=== PATIENT | female | born 1955 | race American Indian/Alaskan Native ===

== ENCOUNTER 2016-12-29 18:58 | Outpatient (CLI) | payer MEDICARE | END 2016-12-29 18:59 | disposition short-term general hospital (02) | DX: R07.9 Chest pain, unspecified (principal); R53.83 Other fatigue; H57.12 Ocular pain, left eye | CPT/HCPCS: A0425; A0427 ==

== ENCOUNTER 2017-01-20 11:59 | Outpatient (CLI) | payer MEDICARE | END 2017-01-20 12:00 | disposition home or self-care (01) | DX: E16.2 Hypoglycemia, unspecified (principal); E66.9 Obesity, unspecified; D69.6 Thrombocytopenia, unspecified ==

== ENCOUNTER 2017-01-21 16:48 | Outpatient (CLI) | payer MEDICARE ==
[2017-01-21] MEDS ORDERED: IOPAMIDOL-300 50 ML VIAL PO ONE (20:34)
[2017-01-21] MEDS ORDERED: IOPAMIDOL-300 100 ML VIAL IVP ONE (20:34)
== END 2017-01-21 16:49 | disposition home or self-care (01) ==
DX: K76.9 Liver disease, unspecified (principal)
CPT/HCPCS: 74177; Q9967

== ENCOUNTER 2017-01-31 10:09 | Outpatient (CLI) | payer MEDICARE | END 2017-01-31 10:10 | disposition home or self-care (01) | DX: Z71.3 Dietary counseling and surveillance (principal); K21.9 Gastro-esophageal reflux disease without esophagitis; Z68.34 Body mass index [BMI] 34.0-34.9, adult ==

== ENCOUNTER 2017-02-14 10:17 | Outpatient (CLI) | payer MEDICARE | END 2017-02-14 10:18 | disposition home or self-care (01) | LOC: NS 10:17 | PROVIDERS: ATTEND Physician Assistant Medical | DX: Z71.3 Dietary counseling and surveillance (principal); E66.3 Overweight; K21.9 Gastro-esophageal reflux disease without esophagitis | CPT/HCPCS: 97803 ==

== ENCOUNTER 2017-02-15 14:56 | Outpatient (CLI) | payer MEDICARE | END 2017-02-15 14:57 | disposition home or self-care (01) | DX: K21.9 Gastro-esophageal reflux disease without esophagitis (principal) ==

== ENCOUNTER 2017-02-28 10:24 | Outpatient (CLI) | payer MEDICARE | END 2017-02-28 10:25 | disposition home or self-care (01) | LOC: NS 10:24 | PROVIDERS: ATTEND Physician Assistant Medical | DX: Z71.3 Dietary counseling and surveillance (principal); E66.3 Overweight; K21.9 Gastro-esophageal reflux disease without esophagitis; Z68.33 Body mass index [BMI] 33.0-33.9, adult | CPT/HCPCS: 97803 ==

== ENCOUNTER 2017-03-08 19:05 | Outpatient (CLI) | payer MEDICARE ==
--- NOTE | 2017-03-09 08:44 | Ultrasound Report ---
LIMITED ABDOMINAL ULTRASOUND: 03/08/2017 COMPARISON: Contrast-enhanced abdominal and pelvic CT 01/21/2017. CLINICAL HISTORY: Liver lesions noted on recent CT exam. Patient has a past history of liver cysts. TECHNIQUE: Real-time scanning was performed with assistance representative static images obtained. FINDINGS: There is a benign cyst noted in the left lobe of the liver measuring 1.2 x 1.5 x 2.0 cm. There is a second much smaller liver cyst in the anterior aspect of the right lobe of the liver measu ring 0.6 cm. Liver size is within normal limits having a length of 14.4 cm. Portal vein shows normal hepatopetal flow. Gallbladder shows no wall thickening or calculi. Patient had no right upper quadrant tenderness. Common bile duct has a normal diameter of 4 mm. Right kidney has a length of 10.7 cm. No pyelocaliceal system distention is seen. Portion of the pancreas visualized showed no significant abnormality. IMPRESSION: TWO SMALL BENIGN LIVER CYSTS HAVING MAXIMAL DIAMETERS OF 2 CM AND 0.6 CM RESPECTIVELY. JOB #: [id number] EXT JOB #:[id number]
== END 2017-03-08 19:06 | disposition home or self-care (01) ==
LOC: DI 19:05
PROVIDERS: ATTEND Physician Assistant Medical
DX: K21.9 Gastro-esophageal reflux disease without esophagitis (principal); K76.89 Other specified diseases of liver
CPT/HCPCS: 76705

== ENCOUNTER 2017-04-06 11:58 | Day surgery (SDC) | payer MEDICARE ==
[2017-04-06] MEDS ORDERED: LACTATED RINGERS 1,000 ML IV ONE (12:31)
[2017-04-06 14:23] VITALS: BP 128/76
--- NOTE | 2017-04-07 07:25 | PROCEDURE REPORT ---
DATE OF PROCEDURE: PROCEDURE PERFORMED 1. Esophagogastroduodenoscopy. 2. Colonoscopy. ENDOSCOPIST: Joann Buchanan M.D. PRIMARY CARE: Samra Pfeiffer P.A.-C INDICATION FOR THE PROCEDURE: Cervical dysphagia, upper abdominal pain, family history of colon cancer and polyps, and rectal bleeding in the past. Rule out neoplasia. PREMEDICATIONS 1. Fentanyl 200 mcg. 2. Versed 12 mg IV titration. TOTAL SEDATION TIME: 50 minutes. DESCRIPTION OF PROCEDURE: After informed consent was obtained, the patient was placed in the left lateral decubitus position. The video upper scope was placed into the oropharynx and, with the patient's help, swallowed into the esophagus. The esophagus, stomach, and duodenum were carefully examined. On withdrawal, a retroflexed view of the GE junction was performed. The scope was removed. The patient tolerated the procedure well. The patient was then turned. The colonoscope was substituted and passed through the rectum and eventually to the cecum. Preparation was good. On slow withdrawal, the mucosa was carefully examined. The scope was removed. The patient tolerated the procedure well. ESTIMATED BLOOD LOSS: None. COMPLICATIONS: None. FINDINGS Esophagogastroduodenoscopy: 1. The esophagus was with multiple disordered tertiary contractions and a small pulsion diverticulum in the lower third. The GE junction was somewhat difficult to get through, most consistent with esophageal motility disorder with possible EGJOutlet obstruction. 2. Distal erythema in the antrum and prepyloric area, biopsied to rule out Helicobacter. 3. Normal duodenal bulb and sweep. Colon: 1. A 2+ cm flat polyp in the cecum, which was injected with saline to raise it. The edges were well delineated. EMR (endoscopic mucosal resection) was then performed with a small snare in a piecemeal fashion, with two large specimens and one smaller one. It was felt the lesion was completely removed. Photographs were taken. 2. An 8 mm rectal polyp, cold snared and removed completely. 3. Otherwise, negative colonoscopy to the cecum. FOLLOWUP: I will have the patient follow up with Dr. Fuentes in our group. It may well be that she could benefit from an esophageal manometry given the look of her esophagus. I do not have any clear-cut reason for her abdominal pain, however. Colonoscopy revealed this very large polyp, which I was able to remove , but she will need followup performed at [facility] because of the presence of different equipment when she has a repeat in 6 to 12 months. JOB #: [id number] EXT JOB #:[id number] MELYSSA
== END 2017-04-06 11:59 | disposition home or self-care (01) ==
LOC: SDS 11:58
PROVIDERS: ATTEND Internal Medicine Gastroenterology
PROC: 3E0H8GC Introduction of Other Therapeutic Substance into Lower GI, Via Natural or Artificial Opening Endoscopic (ICD-10-PCS; 2017-04-06)
PROC: 0DB68ZX Excision of Stomach, Via Natural or Artificial Opening Endoscopic, Diagnostic (ICD-10-PCS; 2017-04-06)
PROC: 0DBH8ZZ Excision of Cecum, Via Natural or Artificial Opening Endoscopic (ICD-10-PCS; principal; 2017-04-06 12:30)
PROC: 0DBP8ZZ Excision of Rectum, Via Natural or Artificial Opening Endoscopic (ICD-10-PCS; 2017-04-06 12:30)
DX: R10.10 Upper abdominal pain, unspecified (principal); R13.12 Dysphagia, oropharyngeal phase; K62.5 Hemorrhage of anus and rectum; D12.0 Benign neoplasm of cecum; K62.1 Rectal polyp; K22.5 Diverticulum of esophagus, acquired; K29.70 Gastritis, unspecified, without bleeding; Z80.0 Family history of malignant neoplasm of digestive organs
CPT/HCPCS: 43239; 45381; 45385; 88305; J7120

== ENCOUNTER 2017-06-14 11:51 | Outpatient (CLI) | payer MEDICARE ==
[2017-06-14 12:12] LABS: BASOPHILS % (AUTO) 0.8 %; EOSINOPHILS # (AUTO) 0.1 10^3/uL (0.0-0.7); EOSINOPHILS % (AUTO) 1.5 %; HCT - HEMATOCRIT 37.8 % (37.0-47.0); LYMPHOCYTES # (AUTO) 1.6 10^3/uL (1.5-3.5); LYMPHOCYTES % (AUTO) 40.3 %; MEAN CORPUSCULAR HEMOGLOBIN 32.8 pg (27.0-31.0); MEAN CORPUSCULAR HGB CONC 34.5 g/dL (32.0-36.0); MEAN CORPUSCULAR VOLUME 95.1 fL (81.0-99.0); MEAN PLATELET VOLUME 6.8 fL (7.9-10.8); MONOCYTES # (AUTO) 0.4 10^3/uL (0.0-1.0); NEUTROPHILS # (AUTO) 1.8 10^3/uL (1.5-6.6); NEUTROPHILS % (AUTO) 46.4 %; NUCLEATED RED BLOOD CELLS AUTO 0.1 /100WBC; RED BLOOD COUNT 3.98 10^6/uL (4.20-5.40); RED CELL DISTRIBUTION WIDTH 13.5 % (12.0-15.0)
== END 2017-06-14 11:52 | disposition home or self-care (01) ==
LOC: LAB 11:51
PROVIDERS: ATTEND Physician Assistant Medical
DX: D69.6 Thrombocytopenia, unspecified (principal)
CPT/HCPCS: 36415; 85025

== ENCOUNTER 2017-07-20 13:10 | Outpatient (CLI) | payer MEDICARE | END 2017-07-20 13:11 | disposition home or self-care (01) | LOC: DI 13:10 | PROVIDERS: ATTEND Physician Assistant Medical | DX: R01.1 Cardiac murmur, unspecified (principal) | CPT/HCPCS: 93306 ==

== ENCOUNTER 2017-09-07 12:57 | Outpatient (CLI) | payer MEDICARE ==
--- NOTE | 2017-09-09 11:24 | Mammography Report ---
DIGITAL SCREENING MAMMOGRAM: 09/07/2017 CLINICAL INDICATION: A 62-year-old with family history of breast cancer, for screening. COMPARISON: 03/2016, 02/2016, 12/2013, 03/2012, 11/2010. TECHNIQUE: Routine CC and MLO projections were obtained of the breasts. FINDINGS: Scattered fibroglandular tissue is present within the breasts. There are no dominant deedee s, suspicious microcalcifications, or secondary signs of malignancy. In comparison to the previous st udies, there are no significant changes. ASSESSMENT: NO MAMMOGRAPHIC EVIDENCE OF MALIGNANCY. NO SIGNIFICANT INTERVAL CHANGES. RECOMMENDATION: Screening mammography is recommended annually. BIRADS category 1 - negative. STANDARD QUALIFYING STATEMENTS 1. This examination was reviewed with the aid of Computed-Aided Detection (CAD). 2. A negative or benign imaging report should not delay biopsy if clinically suspicious findings are present. Consider surgical consultation if warranted. More than 5% of cancers are not identified by i maging. 3. Dense breasts may obscure an underlying neoplasm. JOB #: [id number] EXT JOB #:[id number]
== END 2017-09-07 12:58 | disposition home or self-care (01) ==
LOC: DI 12:57
PROVIDERS: ATTEND Physician Assistant Medical
DX: Z12.31 Encounter for screening mammogram for malignant neoplasm of breast (principal); Z80.3 Family history of malignant neoplasm of breast
CPT/HCPCS: 77067

== ENCOUNTER 2017-09-07 12:59 | Outpatient (CLI) | payer MEDICARE ==
--- NOTE | 2017-09-09 12:59 | DEXA Report ---
DEXA SCAN: 09/07/2017 CLINICAL INDICATION: Postmenopausal. TECHNIQUE: Dual energy x-ray absorptiometry (DXA) was performed on a [employer] system. Regions measured are the AP spine, femoral neck, and, if needed, forearm. COMPARISON: None. In accordance with the International Society for Clinical Densitometry (ISCD) guidelines, data from previous exams may be reanalyzed using current recommendations and techniques. This is done to allow a more accurate basis for comparison with the current study. FINDINGS LUMBAR SPINE DATA: REGION BMD (g/cm/cm) T-SCORE Z-SCORE L1 0.870 -2.2 -2.1 L2 0.877 -2.7 -2.6 L3 0.954 -2.0 -2.0 L4 1.076 -1.0 -1.0 TOTAL L1-L4 0.959 -1.8 -1.8 TOTAL L2-L4 0.983 -1.8 -1.8 NOTE: All evaluable vertebrae are used for classification. HIP DATA: REGION BMD (g/cm/cm) T-SCORE Z-SCORE Neck 0.761 -2.0 -1.5 TOTAL 0.811 -1.6 -1.5 NOTE: The femoral neck or total proximal femur, whichever is lowest, is used for classification. IMPRESSION THE WHO CLASSIFICATION BASED ON THE INTERNATIONAL REFERENCE STANDARD: OSTEOPENIA. FRACTURE RISK: INCREASED. RECOMMENDATION: Patients with diagnosis of osteoporosis or osteopenia should have regular bone mineral density assessment. For those eligible for Medicare, routine testing is allowed once every 2 years. Testing frequency can be increased for patients who have rapidly progressing disease or for those who are receiving medical therapy to restore bone mass. COMMENT: World Health Organization (WHO) definitions for osteoporosis and osteopenia: NORMAL BMD: T-score at -1.0 or higher, fracture risk is low. OSTEOPENIA BMD: T-score between -1.0 and -2.5, fracture risk is increased. OSTEOPOROSIS BMD: T-score at -2.5 or lower, fracture risk high. National Osteoporosis Foundation recommends: 1. Obtain adequate dietary calcium (at least 1200 mg per day) and vitamin D (400 -800 international units per day). 2. Participate, as appropriate, in regular weightbearing and muscle- strengthening exercise. 3. Avoid tobacco use and reduce alcohol and caffeine intake. 4. For more detailed information see the website at www.NOF.org. MTDD
== END 2017-09-07 13:00 | disposition home or self-care (01) ==
LOC: DI 12:59
PROVIDERS: ATTEND Physician Assistant Medical
DX: M85.89 Other specified disorders of bone density and structure, multiple sites (principal)
CPT/HCPCS: 77080

== ENCOUNTER 2017-10-08 14:46 | Outpatient (CLI) | payer MEDICARE ==
--- NOTE | 2017-10-09 01:52 | MRI Report ---
EXAM: MRI LUMBAR SPINE WITHOUT CONTRAST EXAM DATE: 10/08/2017 04:45 PM. CLINICAL HISTORY: LUMBAR RADICULITIS. COMPARISON: Lumbar spine MRI 05/29/2015. TECHNIQUE: Multiplanar, multisequence T1-weighted and fluid-sensitive sequences of the lumbar spine f rom T12 to S3 without contrast. Other: None. FINDINGS: Spinal Cord: The conus terminates at L2. The conus medullaris and cauda equina are unremarkable. Alignment: No scoliosis or spondylolisthesis. Bone Marrow: Five [id number]-[id number] lumbar vertebral bodies are assumed. S1 is a transitional type vert ebral element. No gross fractures or bone lesions. No bone marrow edema. Disk Levels/Facets: T12-L1: Unremarkable. L1-L2: Unremarkable. L2-L3: There is a broad-based disk bulge and mild facet hypertrophy. There is mild central canal narr owing. There is no neural foraminal narrowing. L3-L4: There is a broad-based disk bulge and mild facet hypertrophy. There is mild central canal narr owing. There is no neural foraminal narrowing. L4-L5: There is a broad-based disk bulge. There is moderate bilateral facet hypertrophy. There is mil d central canal narrowing. There is mild bilateral neural foraminal narrowing. L5-S1: There is 3 mm anterolisthesis of L5 on S1. There is disk height loss with endplate degenerativ e changes. There is a mild disk bulge. Moderate bilateral facet hypertrophy. There is no significant central canal narrowing. There is mild right neural foraminal narrowing. Comment: The following findings are so common in adults without low back pain that while we report th eir presence, they must be interpreted with caution and in the context of the clinical situation. (Re omar Soriano et al, Spine 2001) Prevalence of findings in patients without low back pain: Disk degeneration (any evidence): 92% Disk desiccation/T2 signal loss: 83% Disk height loss: 56% Disk bulge: 64% Disk protrusion: 32% Annular tear/high intensity zone: 38% Musculature: Normal. No edema or fatty atrophy. Other: The partially visualized retroperitoneum is unremarkable. IMPRESSION: 1. L2-L3, L3-L4, and L4-L5 disk bulges and posterior element degenerative changes with mild central c anal narrowing. (Stable) 2. Mild bilateral L4-L5 and mild right L5-S1 neural foraminal narrowing. (Mild interval worsening) [facility] Referring Provider Line: [phone] SITE ID: [id number]
== END 2017-10-08 14:47 | disposition home or self-care (01) ==
LOC: DI 14:46
PROVIDERS: ATTEND Student in an Organized Health Care Education/Training Program
DX: M51.36 Other intervertebral disc degeneration, lumbar region (principal); M47.896 Other spondylosis, lumbar region; M47.897 Other spondylosis, lumbosacral region; M43.17 Spondylolisthesis, lumbosacral region
CPT/HCPCS: 72148

== ENCOUNTER 2017-12-13 08:00 | Outpatient (CLI) | payer MEDICARE ==
[2017-12-13 13:36] LABS: BASOPHILS % (AUTO) 0.5 %; EOSINOPHILS # (AUTO) 0.1 10^3/uL (0.0-0.7); EOSINOPHILS % (AUTO) 1.7 %; HGB - HEMOGLOBIN 13.7 g/dL (12.0-16.0); LYMPHOCYTES # (AUTO) 1.9 10^3/uL (1.5-3.5); LYMPHOCYTES % (AUTO) 49.2 %; MEAN CORPUSCULAR HEMOGLOBIN 32.3 pg (27.0-31.0); MEAN CORPUSCULAR HGB CONC 34.1 g/dL (32.0-36.0); MEAN CORPUSCULAR VOLUME 94.9 fL (81.0-99.0); MEAN PLATELET VOLUME 7.7 fL (7.9-10.8); MONOCYTES # (AUTO) 0.5 10^3/uL (0.0-1.0); NEUTROPHILS # (AUTO) 1.4 10^3/uL (1.5-6.6); NEUTROPHILS % (AUTO) 36.6 %; PLT - PLATELET COUNT 152 10^3/uL (130-450); RED BLOOD COUNT 4.22 10^6/uL (4.20-5.40); RED CELL DISTRIBUTION WIDTH 13.7 % (12.0-15.0); WHITE BLOOD COUNT 3.8 x10^3/uL (4.8-10.8)
[2017-12-13 14:06] LABS: ALBUMIN 4.2 g/dL (3.2-5.5); ALBUMIN/GLOBULIN RATIO 1.4 (1.0-2.2); ALKALINE PHOSPHATASE 70 IU/L (42-121); ALT ALANINE AMINOTRANSFERASE 26 IU/L (10-60); AST ASPARTATE AMINOTRANSFERASE 23 IU/L (10-42); BILIRUBIN,TOTAL 0.6 mg/dL (0.2-1.0); BUN - BLOOD UREA NITROGEN 12 mg/dL (6-20); CALCIUM 9.2 mg/dL (8.5-10.3); CARBON DIOXIDE - CO2 28 mmol/L (21-32); CHLORIDE 102 mmol/L (101-111); CHOL/HDL RATIO 3.5 (<4.4); CHOLESTEROL 264 mg/dL; CREATININE 0.8 mg/dL (0.4-1.0); GFR - MDRD 73 (>89); GLUCOSE 95 mg/dL (70-100); HDL CHOLESTEROL 75 mg/dL; LDL CHOLESTEROL,CALCULATED 168 mg/dL; LDL/HDL RATIO 2.2 (<4.4); SODIUM 137 mmol/L (135-145); TOTAL PROTEIN 7.1 g/dL (6.7-8.2); VLDL CHOLESTEROL 21 mg/dL
== END 2017-12-13 08:01 | disposition home or self-care (01) ==
LOC: LAB.WCP 08:00
PROVIDERS: ATTEND Physician Assistant Medical
DX: I10 Essential (primary) hypertension (principal); D69.6 Thrombocytopenia, unspecified
CPT/HCPCS: 36415; 80053; 80061; 83721; 85025

== ENCOUNTER 2018-01-09 08:00 | Outpatient (CLI) | payer MEDICARE | END 2018-01-09 08:01 | disposition home or self-care (01) | LOC: LAB.R 08:00 | PROVIDERS: ATTEND Physician Assistant Medical | DX: Z79.891 Long term (current) use of opiate analgesic (principal) | CPT/HCPCS: 80307; 81599 ==

== ENCOUNTER 2018-04-29 09:16 | Outpatient (CLI) | payer MEDICARE ==
[2018-04-29 09:35] LABS: BASOPHILS % (AUTO) 0.9 %; EOSINOPHILS # (AUTO) 0.1 10^3/uL (0.0-0.7); HGB - HEMOGLOBIN 13.3 g/dL (12.0-16.0); LYMPHOCYTES # (AUTO) 2.2 10^3/uL (1.5-3.5); LYMPHOCYTES % (AUTO) 50.9 %; MEAN CORPUSCULAR HEMOGLOBIN 32.6 pg (27.0-31.0); MEAN CORPUSCULAR HGB CONC 33.9 g/dL (32.0-36.0); MEAN CORPUSCULAR VOLUME 96.1 fL (81.0-99.0); MONOCYTES # (AUTO) 0.5 10^3/uL (0.0-1.0); MONOCYTES % (AUTO) 12.1 %; NEUTROPHILS # (AUTO) 1.4 10^3/uL (1.5-6.6); NEUTROPHILS % (AUTO) 34.1 %; PLT - PLATELET COUNT 159 10^3/uL (130-450); RED CELL DISTRIBUTION WIDTH 13.7 % (12.0-15.0); WHITE BLOOD COUNT 4.3 x10^3/uL (4.8-10.8)
[2018-04-29 09:47] LABS: ALBUMIN 3.7 g/dL (3.2-5.5); ALBUMIN/GLOBULIN RATIO 1.3 (1.0-2.2); ALKALINE PHOSPHATASE 81 IU/L (42-121); ALT ALANINE AMINOTRANSFERASE 28 IU/L (10-60); AST ASPARTATE AMINOTRANSFERASE 25 IU/L (10-42); BILIRUBIN,TOTAL 0.6 mg/dL (0.2-1.0); BUN - BLOOD UREA NITROGEN 18 mg/dL (6-20); CALCIUM 8.9 mg/dL (8.5-10.3); CARBON DIOXIDE - CO2 27 mmol/L (21-32); CHLORIDE 102 mmol/L (101-111); CHOL/HDL RATIO 3.9 (<4.4); CHOLESTEROL 223 mg/dL; CREATININE 0.7 mg/dL (0.4-1.0); GFR - MDRD 85 (>89); GLUCOSE 96 mg/dL (70-100); HDL CHOLESTEROL 57 mg/dL; LDL CHOLESTEROL,CALCULATED 131 mg/dL; LDL/HDL RATIO 2.3 (<4.4); SODIUM 136 mmol/L (135-145); TOTAL PROTEIN 6.5 g/dL (6.7-8.2); VLDL CHOLESTEROL 35 mg/dL
== END 2018-04-29 09:17 | disposition home or self-care (01) ==
LOC: LAB 09:16
PROVIDERS: ATTEND Physician Assistant Medical
DX: E78.5 Hyperlipidemia, unspecified (principal); I10 Essential (primary) hypertension
CPT/HCPCS: 36415; 80053; 80061; 83721; 85025

== ENCOUNTER 2018-07-19 08:00 | Outpatient (CLI) | payer MEDICARE ==
[2018-07-19 18:51] LABS: BASOPHILS % (AUTO) 0.3 %; EOSINOPHILS # (AUTO) 0.1 10^3/uL (0.0-0.7); EOSINOPHILS % (AUTO) 1.8 %; HGB - HEMOGLOBIN 14.5 g/dL (12.0-16.0); MEAN CORPUSCULAR HEMOGLOBIN 32.8 pg (27.0-31.0); MEAN CORPUSCULAR HGB CONC 33.6 g/dL (32.0-36.0); MEAN CORPUSCULAR VOLUME 97.6 fL (81.0-99.0); MEAN PLATELET VOLUME 7.6 fL (7.9-10.8); MONOCYTES # (AUTO) 0.6 10^3/uL (0.0-1.0); MONOCYTES % (AUTO) 12.7 %; NEUTROPHILS # (AUTO) 1.8 10^3/uL (1.5-6.6); NEUTROPHILS % (AUTO) 40.2 %; PLT - PLATELET COUNT 177 10^3/uL (130-450); RED BLOOD COUNT 4.41 10^6/uL (4.20-5.40); RED CELL DISTRIBUTION WIDTH 13.8 % (12.0-15.0); WHITE BLOOD COUNT 4.5 x10^3/uL (4.8-10.8)
[2018-07-19 19:12] LABS: ALBUMIN 4.4 g/dL (3.2-5.5); ALBUMIN/GLOBULIN RATIO 1.8 (1.0-2.2); ALKALINE PHOSPHATASE 99 IU/L (42-121); ALT ALANINE AMINOTRANSFERASE 28 IU/L (10-60); AST ASPARTATE AMINOTRANSFERASE 26 IU/L (10-42); BILIRUBIN,TOTAL 0.4 mg/dL (0.2-1.0); BUN - BLOOD UREA NITROGEN 8 mg/dL (6-20); CALCIUM 9.5 mg/dL (8.5-10.3); CARBON DIOXIDE - CO2 27 mmol/L (21-32); CHLORIDE 102 mmol/L (101-111); CHOL/HDL RATIO 3.6 (<4.4); CHOLESTEROL 270 mg/dL; CREATININE 0.7 mg/dL (0.4-1.0); GFR - MDRD 85 (>89); GLUCOSE 89 mg/dL (70-100); HDL CHOLESTEROL 75 mg/dL; LDL CHOLESTEROL,CALCULATED 176 mg/dL; LDL/HDL RATIO 2.3 (<4.4); SODIUM 139 mmol/L (135-145); TOTAL PROTEIN 6.9 g/dL (6.7-8.2); VLDL CHOLESTEROL 19 mg/dL
== END 2018-07-19 08:01 | disposition home or self-care (01) ==
LOC: LAB.WCP 08:00
PROVIDERS: ATTEND Physician Assistant Medical
DX: E78.5 Hyperlipidemia, unspecified (principal); I10 Essential (primary) hypertension
CPT/HCPCS: 36415; 80053; 80061; 83721; 85025

== ENCOUNTER 2018-09-27 09:30 | Outpatient (CLI) | payer MEDICARE | END 2018-09-27 23:59 | disposition home or self-care (01) | LOC: LAB.WCP 09:30 | PROVIDERS: ATTEND Physician Assistant Medical | DX: N76.0 Acute vaginitis (principal) | CPT/HCPCS: 87086; 87480; 87510; 87660 ==

== ENCOUNTER 2018-10-25 15:22 | Outpatient (CLI) | payer MEDICARE ==
--- NOTE | 2018-10-26 08:33 | Mammography Report ---
Reason: SCREENING MAMMO Procedure Date: 10/25/2018 Accession Number: [id number] / [id number] Procedure: KAILYN - Screening Mammo w/Ashvin CPT Code: FULL RESULT: EXAM: Screening Mammo w/Ashvin DATE: 10/25/2018 5:04 PM CLINICAL HISTORY: Screening encounter. Family history positive for breast cancer in the mother above the age of 55. TECHNIQUE: Bilateral CC and MLO views were obtained. COMPARISON: 09/07/2017 through 01/04/2014. FINDINGS: The breasts demonstrate scattered fibroglandular densities bilaterally. No suspicious masses, clustered microcalcifications, or regions of architectural distortion are identified. IMPRESSION: Negative examination RECOMMENDATION: Routine annual screening unless otherwise clinically indicated. BIRADS CATEGORY 1: Negative STANDARD QUALIFYING STATEMENTS: 1. This examination was not reviewed with the aid of Computer-Aided Detection (CAD). 2. A negative or benign imaging report should not preclude biopsy if clinically suspicious findings are present. 3. Dense breasts may obscure an underlying neoplasm. 4. This examination was reviewed with the aid of 3D breast imaging (tomosynthesis).
== END 2018-10-25 15:23 | disposition home or self-care (01) ==
LOC: DI 15:22
DX: Z12.31 Encounter for screening mammogram for malignant neoplasm of breast (principal); Z80.3 Family history of malignant neoplasm of breast
CPT/HCPCS: 77063; 77067

== ENCOUNTER 2018-10-30 08:00 | Outpatient (CLI) | payer MEDICARE ==
[2018-10-30 19:21] LABS: BASOPHILS % (AUTO) 0.7 %; EOSINOPHILS # (AUTO) 0.1 10^3/uL (0.0-0.7); EOSINOPHILS % (AUTO) 2.8 %; HGB - HEMOGLOBIN 13.9 g/dL (12.0-16.0); LYMPHOCYTES # (AUTO) 1.2 10^3/uL (1.5-3.5); LYMPHOCYTES % (AUTO) 37.6 %; MEAN CORPUSCULAR HEMOGLOBIN 32.8 pg (27.0-31.0); MEAN CORPUSCULAR HGB CONC 32.7 g/dL (32.0-36.0); MEAN CORPUSCULAR VOLUME 100.2 fL (81.0-99.0); MEAN PLATELET VOLUME 7.8 fL (7.9-10.8); MONOCYTES # (AUTO) 0.3 10^3/uL (0.0-1.0); MONOCYTES % (AUTO) 10.5 %; NEUTROPHILS # (AUTO) 1.5 10^3/uL (1.5-6.6); NEUTROPHILS % (AUTO) 48.4 %; PLT - PLATELET COUNT 160 10^3/uL (130-450); RED BLOOD COUNT 4.24 10^6/uL (4.20-5.40); WHITE BLOOD COUNT 3.2 x10^3/uL (4.8-10.8)
[2018-10-30 19:37] LABS: HB2 TOTAL 15.3 g/dL; HEMOGLOBIN A1C 0.48 g/dL
[2018-10-30 19:52] LABS: ALBUMIN 4.2 g/dL (3.2-5.5); ALBUMIN/GLOBULIN RATIO 1.6 (1.0-2.2); ALKALINE PHOSPHATASE 79 IU/L (42-121); ALT ALANINE AMINOTRANSFERASE 24 IU/L (10-60); AST ASPARTATE AMINOTRANSFERASE 21 IU/L (10-42); BILIRUBIN,TOTAL 0.9 mg/dL (0.2-1.0); BUN - BLOOD UREA NITROGEN 15 mg/dL (6-20); CALCIUM 9.3 mg/dL (8.5-10.3); CARBON DIOXIDE - CO2 27 mmol/L (21-32); CHLORIDE 104 mmol/L (101-111); CHOL/HDL RATIO 3.2 (<4.4); CHOLESTEROL 227 mg/dL; CREATININE 0.8 mg/dL (0.4-1.0); GFR - MDRD 73 (>89); GLUCOSE 93 mg/dL (70-100); HDL CHOLESTEROL 70 mg/dL; LDL CHOLESTEROL,CALCULATED 139 mg/dL; SODIUM 137 mmol/L (135-145); TOTAL PROTEIN 6.9 g/dL (6.7-8.2); VLDL CHOLESTEROL 18 mg/dL
== END 2018-10-30 23:59 ==
LOC: LAB.WCP 08:00
PROVIDERS: ATTEND Physician Assistant Medical
DX: E78.5 Hyperlipidemia, unspecified (principal); E16.2 Hypoglycemia, unspecified; D69.6 Thrombocytopenia, unspecified
CPT/HCPCS: 36415; 80053; 80061; 83036; 83721; 84443; 85025

== ENCOUNTER 2019-01-02 15:13 | Outpatient (CLI) | payer MEDICARE | END 2019-01-02 15:14 | disposition home or self-care (01) | LOC: NS 15:13 | PROVIDERS: ATTEND Physician Assistant Medical | DX: Z71.3 Dietary counseling and surveillance (principal); E66.9 Obesity, unspecified; Z68.35 Body mass index [BMI] 35.0-35.9, adult | CPT/HCPCS: 97802 ==

== ENCOUNTER 2019-01-02 16:40 | Outpatient (CLI) | payer MEDICARE | END 2019-01-02 16:41 | disposition home or self-care (01) | LOC: LAB 16:40 | PROVIDERS: ATTEND Internal Medicine Hematology & Oncology | DX: D72.819 Decreased white blood cell count, unspecified (principal) ==

== ENCOUNTER 2019-04-17 08:46 | Outpatient (CLI) | payer MEDICARE ==
--- NOTE | 2019-04-17 13:51 | XRAY Report ---
Reason: PARESTHESIA,HANDS Procedure Date: 04/17/2019 Accession Number: [id number] / [id number] Procedure: WCP - Cervical Spine 2 View CPT Code: FULL RESULT: EXAM: CERVICAL SPINE RADIOGRAPHY EXAM DATE: 04/17/2019 09:02 AM. CLINICAL HISTORY: Paresthesia, hands. COMPARISONS: None. TECHNIQUE: 3 views. FINDINGS: Alignment: Normal. No spondylolisthesis or scoliosis. Bones: The cervical vertebral bodies and posterior elements are well visualized from the skull base through C7-T1. No fractures or bone lesions. Disks: There is moderate diffuse degenerative disk disease seen throughout the mid and lower aspects of the cervical spine. Appearance is worse at C5-C6 and C6-C7. Facets: There is mild diffuse degenerative facet disease seen throughout the mid and lower aspect of the cervical spine. Soft Tissues: Normal. No prevertebral soft tissue swelling. The visualized lung apices are clear. IMPRESSION: Mild to moderate degenerative spondylosis changes seen in the mid and lower cervical spine, worse at C5-C6 and C6-C7. RAD[facility]
== END 2019-04-17 08:47 | disposition home or self-care (01) ==
LOC: DI.WCP 08:46
PROVIDERS: ATTEND Physician Assistant Medical
DX: M50.322 Other cervical disc degeneration at C5-C6 level (principal); M47.812 Spondylosis without myelopathy or radiculopathy, cervical region
CPT/HCPCS: 72040

== ENCOUNTER 2019-04-17 08:47 | Outpatient (CLI) | payer MEDICARE ==
--- NOTE | 2019-04-18 12:21 | XRAY Report ---
Reason: WRIST PAIN,RIGHT/LEFT Procedure Date: 04/17/2019 Accession Number: [id number] / [id number] Procedure: WCP - Wrist 2 View BILAT CPT Code: FULL RESULT: EXAMS: 1. Right Wrist Radiography 2. Left Wrist Radiography EXAM DATE: 04/17/2019 09:02 AM. CLINICAL HISTORY: WRIST PAIN,RIGHT/LEFT. COMPARISON: None. TECHNIQUE: 2 views each wrist. FINDINGS: Right: Bones: No acute fracture or bony lesion. No bony erosions. Joints: Normal alignment. Mild degenerative changes of the scaphotrapezoid and scaphotrapezium and right first carpometacarpal joints. No dislocation. Soft Tissues: Normal. No soft tissue swelling. Left: Bones: No acute fracture or bony lesion. No bony erosions. Joints: Mild degenerative changes of the scaphotrapezoid and scaphotrapezium and left first carpometacarpal joints. No dislocation. Soft Tissues: Normal. No soft tissue swelling. IMPRESSION: 1. Mild degenerative changes. RAD[facility]
== END 2019-04-17 08:48 | disposition home or self-care (01) ==
LOC: DI.WCP 08:47
PROVIDERS: ATTEND Physician Assistant Medical
DX: M19.032 Primary osteoarthritis, left wrist (principal); M19.031 Primary osteoarthritis, right wrist; M50.322 Other cervical disc degeneration at C5-C6 level; M47.812 Spondylosis without myelopathy or radiculopathy, cervical region; E78.5 Hyperlipidemia, unspecified
CPT/HCPCS: 36415; 72040; 80053; 80061; 83721

== ENCOUNTER 2019-04-17 09:06 | Outpatient (CLI) | payer MEDICARE ==
[2019-04-17 12:26] LABS: ALBUMIN 4.2 g/dL (3.2-5.5); ALBUMIN/GLOBULIN RATIO 1.6 (1.0-2.2); ALKALINE PHOSPHATASE 66 IU/L (42-121); ALT ALANINE AMINOTRANSFERASE 18 IU/L (10-60); AST ASPARTATE AMINOTRANSFERASE 21 IU/L (10-42); BILIRUBIN,TOTAL 0.6 mg/dL (0.2-1.0); BUN - BLOOD UREA NITROGEN 20 mg/dL (6-20); CALCIUM 9.3 mg/dL (8.5-10.3); CARBON DIOXIDE - CO2 26 mmol/L (21-32); CHLORIDE 104 mmol/L (101-111); CHOLESTEROL 227 mg/dL; CREATININE 0.8 mg/dL (0.4-1.0); GFR - MDRD 73 (>89); GLUCOSE 94 mg/dL (70-100); HDL CHOLESTEROL 61 mg/dL; LDL CHOLESTEROL,CALCULATED 144 mg/dL; SODIUM 140 mmol/L (135-145); TOTAL PROTEIN 6.9 g/dL (6.7-8.2); VLDL CHOLESTEROL 22 mg/dL
[2019-04-17 12:27] LABS: CHOL/HDL RATIO 3.7 (<4.4); LDL/HDL RATIO 2.4 (<4.4)
== END 2019-04-17 09:07 | disposition home or self-care (01) ==
LOC: LAB.WCP 09:06
PROVIDERS: ATTEND Physician Assistant Medical
DX: E78.5 Hyperlipidemia, unspecified (principal)
CPT/HCPCS: 36415; 80053; 80061; 83721

== ENCOUNTER 2019-05-17 | Outpatient (CLI) | payer MEDICARE | END 2019-05-17 23:59 | disposition home or self-care (01) | DX: R21 Rash and other nonspecific skin eruption (principal) | CPT/HCPCS: 36415; 84550; 85025; 85651; 86038; 86140; 86430 ==

== ENCOUNTER 2019-06-08 08:00 | Outpatient (CLI) | payer MEDICARE | END 2019-06-08 23:59 | disposition home or self-care (01) | LOC: LAB.WCP 08:00 | PROVIDERS: ATTEND Family Medicine | DX: J02.9 Acute pharyngitis, unspecified (principal) ==

== ENCOUNTER 2019-06-20 08:00 | Outpatient (CLI) | payer MEDICARE | END 2019-06-20 23:59 | disposition home or self-care (01) | LOC: LAB.WCP 08:00 | PROVIDERS: ATTEND Family Medicine | DX: J02.9 Acute pharyngitis, unspecified (principal) ==

== ENCOUNTER 2019-10-26 16:49 | Outpatient (CLI) | payer MEDICARE ==
--- NOTE | 2019-10-29 15:08 | DEXA Report ---
Reason: BONE DISEASE Procedure Date: 10/26/2019 Accession Number: [id number] / [id number] Procedure: DEX - Dexa Spine and/or Hip CPT Code: Final Report FULL RESULT: EXAM: Dexa Spine and/or Hip DATE: 10/26/2019 5:57 PM CLINICAL HISTORY: BONE DISEASE TECHNIQUE: Dual energy x-ray absorptiometry (DXA) was performed on a [employer] System. Regions measured are the AP Spine, femoral neck, and if needed forearm. COMPARISON: 09/07/2017. In accordance with the International Society for Clinical Densitometry (ISCD) guidelines, data from previous exams may be reanalyzed using current recommendations and techniques. This is done to allow a more accurate basis for comparison with the current study. FINDINGS: The data for the lumbar spine is as follows: BMD (g/cm/cm) T-SCORE Z-SCORE REGION L1 0.855 -2.3 -2.0 L2 1.000 -1.7 -1.3 L3 1.001 -1.7 -1.3 L4 1.120 -0.7 -0.3 TOTAL 1.009 -1.4 -1.1 NOTE: All evaluable vertebrae are used for classification The data for the hip is as follows: BMD (g/cm/cm) T-SCORE Z-SCORE REGION Neck 0.743 -2.1 -1.5 TOTAL 0.804 -1.6 -1.3 NOTE: The femoral neck or total proximal femur, whichever is lowest, is used for classification. DXA RESULTS SUMMARY: Spine SCAN DATE AGE BMD CHANGE VS CHANGE VS PREVIOUS PREVIOUS % [birth year]26/2019 64.1 1.120 0.044 4.1 09/07/2017 62.0 1.076 * Denotes significant change at the 95% confidence level. Denotes dissimilar scan types or analysis methods. DXA RESULTS SUMMARY: Hip SCAN DATE AGE BMD CHANGE VS CHANGE VS PREVIOUS PREVIOUS % [birth year]2019 62.1 0.804 -0.007 -0.9 09/07/2017 62.0 0.811 * Denotes significant change at the 95% confidence level. Denotes dissimilar scan types or analysis methods. IMPRESSION: THE WHO CLASSIFICATION BASED ON THE INTERNATIONAL REFERENCE STANDARD IS OSTEOPENIA. THE FRACTURE RISK IS INCREASED. RECOMMENDATION: Patients with diagnosis of osteoporosis or osteopenia should have regular bone mineral density assessment. For those eligible for Medicare, routine testing is allowed once every 2 years. Testing frequency can be increased for patients who have rapidly progressing disease or for those who are receiving medical therapy to restore bone mass. COMMENT: World Health Organization (WHO) definitions for osteoporosis and osteopenia: NORMAL BMD: T-score at -1.0 or higher, fracture risk is low OSTEOPENIA BMD: T-score between -1.0 and -2.5, fracture risk is increased. OSTEOPOROSIS BMD: T-score at -2.5 or lower, fracture risk is high. National Osteoporosis Foundation recommends: 1. Obtain adequate dietary calcium (at least 1200 mg per day) and vitamin D (400-800 international units per day). 2. Participate, as appropriate, in regular weightbearing and muscle-strengthening exercise. 3. Avoid tobacco use and reduce alcohol and caffeine intake. 4. For more detailed information see the website at www.NOF.org.
== END 2019-10-26 16:50 | disposition home or self-care (01) ==
LOC: DI 16:49
PROVIDERS: ATTEND Physician Assistant Medical
DX: M85.89 Other specified disorders of bone density and structure, multiple sites (principal)
CPT/HCPCS: 77080

== ENCOUNTER 2019-10-26 16:54 | Outpatient (CLI) | payer MEDICARE ==
--- NOTE | 2019-10-29 12:52 | Mammography Report ---
Reason: SCREENING MAMMO Procedure Date: 10/26/2019 Accession Number: [id number] / [id number] Procedure: KAILYN - Screening Mammo w/Ashvin CPT Code: Final Report FULL RESULT: EXAM: Screening Mammo w/Ashvin DATE: 10/26/2019 5:21 PM CLINICAL HISTORY: Screening encounter. Family history of breast cancer in the mother at the age of 60. TECHNIQUE: (B) - Bilateral CC and MLO views were obtained. COMPARISON: 10/25/2018 through 12/08/2010. PARENCHYMAL PATTERN: (A) - The breast(s) demonstrate(s) scattered fibroglandular densities. FINDINGS: There are no suspicious masses, calcifications, or areas of distortion. IMPRESSION: Negative examination. BI-RADS category 1. RECOMMENDATION: (ANNUAL) - Recommend routine annual screening mammography. BI-RADS CATEGORY: (1) - Negative. STANDARD QUALIFYING STATEMENTS: 1. This examination was not reviewed with the aid of Computer-Aided Detection (CAD). 2. A negative or benign imaging report should not preclude biopsy if clinically suspicious findings are present. 3. Dense breasts may obscure an underlying neoplasm. 4. This examination was reviewed with the aid of 3D breast imaging (tomosynthesis).
== END 2019-10-26 16:55 | disposition home or self-care (01) ==
LOC: DI 16:54
DX: Z12.31 Encounter for screening mammogram for malignant neoplasm of breast (principal); Z80.3 Family history of malignant neoplasm of breast
CPT/HCPCS: 77063; 77067

== ENCOUNTER 2019-12-25 11:30 | Outpatient (CLI) | payer MEDICARE | END 2019-12-25 23:59 | disposition home or self-care (01) | LOC: LAB.WCP 11:30 | PROVIDERS: ATTEND Physician Assistant Medical | DX: J06.9 Acute upper respiratory infection, unspecified (principal) | CPT/HCPCS: 81599; U0002 ==

== ENCOUNTER 2020-05-01 10:34 | Outpatient (CLI) | payer MEDICARE ==
[2020-05-01 19:08] LABS: BASOPHILS % (AUTO) 0.6 %; EOSINOPHILS # (AUTO) 0.1 10^3/uL (0.0-0.7); EOSINOPHILS % (AUTO) 1.7 %; HGB - HEMOGLOBIN 12.9 g/dL (12.0-16.0); LYMPHOCYTES # (AUTO) 1.8 10^3/uL (1.5-3.5); LYMPHOCYTES % (AUTO) 50.1 %; MEAN CORPUSCULAR HEMOGLOBIN 33.2 pg (27.0-31.0); MEAN CORPUSCULAR HGB CONC 32.6 g/dL (32.0-36.0); MEAN CORPUSCULAR VOLUME 102.1 fL (81.0-99.0); MEAN PLATELET VOLUME 9.7 fL (7.9-10.8); MONOCYTES # (AUTO) 0.5 10^3/uL (0.0-1.0); MONOCYTES % (AUTO) 12.8 %; NEUTROPHILS # (AUTO) 1.2 10^3/uL (1.5-6.6); NEUTROPHILS % (AUTO) 34.5 %; PLT - PLATELET COUNT 166 10^3/uL (130-450); RED BLOOD COUNT 3.88 10^6/uL (4.20-5.40); RED CELL DISTRIBUTION WIDTH 13.2 % (12.0-15.0); WHITE BLOOD COUNT 3.6 x10^3/uL (4.8-10.8)
[2020-05-01 19:43] LABS: ALBUMIN 4.1 g/dL (3.2-5.5); ALBUMIN/GLOBULIN RATIO 1.6 (1.0-2.2); ALKALINE PHOSPHATASE 64 IU/L (42-121); ALT ALANINE AMINOTRANSFERASE 18 IU/L (10-60); AST ASPARTATE AMINOTRANSFERASE 18 IU/L (10-42); BILIRUBIN,TOTAL 0.8 mg/dL (0.2-1.0); BUN - BLOOD UREA NITROGEN 16 mg/dL (6-20); CALCIUM 9.3 mg/dL (8.5-10.3); CARBON DIOXIDE - CO2 28 mmol/L (21-32); CHLORIDE 102 mmol/L (101-111); CHOL/HDL RATIO 4.3 (<4.4); CHOLESTEROL 261 mg/dL; CREATININE 0.8 mg/dL (0.4-1.0); GLUCOSE 89 mg/dL (70-100); HDL CHOLESTEROL 61 mg/dL; LDL CHOLESTEROL,CALCULATED 184 mg/dL; SODIUM 137 mmol/L (135-145); TOTAL PROTEIN 6.6 g/dL (6.7-8.2); VLDL CHOLESTEROL 16 mg/dL
== END 2020-05-01 23:59 | disposition home or self-care (01) ==
LOC: LAB.WCP 10:34
PROVIDERS: ATTEND Physician Assistant Medical
DX: R13.10 Dysphagia, unspecified (principal)
CPT/HCPCS: 36415; 80053; 80061; 83721; 84443; 85025

== ENCOUNTER 2020-08-03 18:15 | Outpatient (CLI) | payer MEDICARE ==
--- NOTE | 2020-08-03 21:27 | Ultrasound Report ---
PROCEDURE: Retroperitoneal INDICATIONS: INCOMPLETE BLADDER EMPTYING TECHNIQUE: Real-time scanning was performed of the kidneys and bladder, with image documentation. COMPARISON: 03/08/2017 FINDINGS: Kidneys: Kidneys are normal in size. Right kidney measures 10.5 cm long; left kidney measures 10.9 cm long. Right renal cortical thickness is 1.1 cm; left renal cortical thickness is 1.2 cm. No jose d masses are seen. There is a small amount of calyceal fullness seen within the superior pole of the right kidney. There is a 6 to 7 mm stone seen nonobstructing at the mid to inferior aspect of the lef t kidney. Bladder: Pre-void bladder volume is 379 mL. Post-void residual is 24 mL. Pre-void images demonstra te no intraluminal masses or stones. On pre-void images, both ureteral jets are noted with color Dop pler interrogation. (Of note, ureteral jets may not be detectable in up to 25% of cases due to insuf ficient differences in specific gravity between ureteral and bladder urine). Miscellaneous: No free pelvic fluid. IMPRESSION: Mild postvoid residual, 24 cc. A small amount of calyceal fullness can be seen at the superior pole of the right kidney. 6 to 7 mm nonobstructing stone seen within the mid to inferior aspect of the left kidney. Reviewed by: Sterling Ponce MD on 08/03/2020 8:25 PM YUDITH Approved by: Sterling Ponce MD on 08/03/2020 8:25 PM AKBELKIS Station ID: [id number]
== END 2020-08-03 18:16 | disposition home or self-care (01) ==
LOC: DI 18:15
PROVIDERS: ATTEND Family Medicine
DX: N20.0 Calculus of kidney (principal)
CPT/HCPCS: 76770

== ENCOUNTER 2020-08-13 11:50 | Outpatient (CLI) | payer MEDICARE | END 2020-08-13 11:51 | disposition home or self-care (01) | LOC: COV 11:50 | PROVIDERS: ATTEND Family Medicine | DX: R05 Cough (principal); Z20.828 Contact with and (suspected) exposure to other viral communicable diseases; R68.83 Chills (without fever); R53.83 Other fatigue; J02.9 Acute pharyngitis, unspecified; M79.10 Myalgia, unspecified site; R11.2 Nausea with vomiting, unspecified; R19.7 Diarrhea, unspecified ==

== ENCOUNTER 2020-11-13 17:57 | Outpatient (CLI) | payer MEDICARE | END 2020-11-13 17:58 | disposition EMS.NT | LOC: EMS 17:57 | PROVIDERS: ATTEND Surgery | DX: R13.10 Dysphagia, unspecified (principal) ==

== ENCOUNTER 2020-12-03 08:00 | Outpatient (CLI) | payer MEDICARE ==
[2020-12-03 12:31] LABS: MUDS CUTOFF CONCENTRATIONS CUTOFF CONC BELOW:
[2020-12-03 18:20] LABS: BASOPHILS % (AUTO) 0.5 %; EOSINOPHILS # (AUTO) 0.1 10^3/uL (0.0-0.7); EOSINOPHILS % (AUTO) 2.7 %; HGB - HEMOGLOBIN 12.4 g/dL (12.0-16.0); LYMPHOCYTES # (AUTO) 1.7 10^3/uL (1.5-3.5); MEAN CORPUSCULAR HEMOGLOBIN 32.6 pg (27.0-31.0); MEAN CORPUSCULAR HGB CONC 32.2 g/dL (32.0-36.0); MEAN CORPUSCULAR VOLUME 101.3 fL (81.0-99.0); MEAN PLATELET VOLUME 9.7 fL (7.9-10.8); MONOCYTES # (AUTO) 0.5 10^3/uL (0.0-1.0); MONOCYTES % (AUTO) 12.7 %; NEUTROPHILS # (AUTO) 1.7 10^3/uL (1.5-6.6); NEUTROPHILS % (AUTO) 42.9 %; PLT - PLATELET COUNT 170 10^3/uL (130-450); RED CELL DISTRIBUTION WIDTH 13.3 % (12.0-15.0)
[2020-12-03 18:48] LABS: ALBUMIN 4.2 g/dL (3.2-5.5); ALBUMIN/GLOBULIN RATIO 1.6 (1.0-2.2); ALKALINE PHOSPHATASE 65 IU/L (42-121); ALT ALANINE AMINOTRANSFERASE 22 IU/L (10-60); AST ASPARTATE AMINOTRANSFERASE 23 IU/L (10-42); BILIRUBIN,TOTAL 0.8 mg/dL (0.2-1.0); BUN - BLOOD UREA NITROGEN 17 mg/dL (6-20); CALCIUM 10.1 mg/dL (8.5-10.3); CARBON DIOXIDE - CO2 29 mmol/L (21-32); CHLORIDE 101 mmol/L (101-111); CHOL/HDL RATIO 2.8 (<4.4); CHOLESTEROL 219 mg/dL; CREATININE 0.7 mg/dL (0.4-1.0); GLUCOSE 93 mg/dL (70-100); HDL CHOLESTEROL 79 mg/dL; LDL CHOLESTEROL,CALCULATED 114 mg/dL; LDL/HDL RATIO 1.4 (<4.4); TOTAL PROTEIN 6.8 g/dL (6.7-8.2); VLDL CHOLESTEROL 26 mg/dL
[2020-12-03 19:12] LABS: AMPHETAMINE SCREEN,URINE POSITIVE (NEGATIVE); BENZODIAZEPINES SCREEN, URINE NEGATIVE (NEGATIVE); COCAINE SCREEN URINE NEGATIVE (NEGATIVE); METHADONE SCREEN, URINE NEGATIVE (NEGATIVE); METHAMPHETAMINES SCREEN, URINE NEGATIVE (NEGATIVE); OPIATE SCREEN, URINE POSITIVE (NEGATIVE); OXYCODONE SCREEN, URINE NEGATIVE (NEGATIVE); PROPOXYPHENE SCREEN, URINE NEGATIVE (NEGATIVE); TRICYCLIC ANTIDEPRESSANT,URINE NEGATIVE (NEGATIVE)
== END 2020-12-03 23:59 | disposition home or self-care (01) ==
LOC: LAB.WCP 08:00
PROVIDERS: ATTEND Physician Assistant Medical
DX: E78.5 Hyperlipidemia, unspecified (principal); Z79.891 Long term (current) use of opiate analgesic
CPT/HCPCS: 36415; 80053; 80061; 80306; 83721; 84443; 85025

== ENCOUNTER 2020-12-21 09:37 | Emergency (ER) | payer MEDICARE ==
--- NOTE | 2020-12-21 09:55 | ED Physician Documentation ---
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 Derm: Skin cancer surgery - Present Medications Home Medications: Ambulatory Orders Medication Instructions Recorded Confirmed Eszopiclone [Lunesta] 2 mg PO HS 08/15/13 01/02/19 Methamphetamine HCl 5 mg PO BID 12/16/13 01/02/19 HYDROcod/ACETAM 5/325 [Vicodin 1 - 2 ea PO Q6H PRN #15 tablet 06/18/14 01/02/19 5/325] DULoxetine [Cymbalta] 1 tab PO DAILY 04/06/17 01/02/19 Vitamin B Complex/Folic Acid 1 tab PO DAILY 04/06/17 01/02/19 [Vitamin B-100 Complex Tablet] Cholecalciferol (Vitamin D3) 2,000 unit PO DAILY 01/02/19 01/02/19 [Vitamin D] - Allergies Allergies/Adverse Reactions: Allergies Allergy/AdvReac Type Severity Reaction Status Date / Time bacitracin Allergy Rash Verified 12/21/20 09:54 [From Triple Antibiotic] bacitracin zinc * Allergy Rash Verified 12/21/20 09:54 [From Triple Antibiotic] neomycin sulfate * Allergy Rash Verified 12/21/20 09:54 [From Triple Antibiotic] nitrofurantoin Allergy Rash Verified 12/21/20 09:54 [From Macrobid] nitrofurantoin Allergy Rash Verified 12/21/20 09:54 macrocrystalline * [From Macrobid] polymyxin B Allergy Rash Verified 12/21/20 09:54 [From Triple Antibiotic] polymyxin B sulfate * Allergy Rash Verified 12/21/20 09:54 [From Triple Antibiotic] azithromycin [From Zithromax] AdvReac Intermediate Hallucinati Verified 12/21/20 09:54 ons erythromycin base AdvReac Intermediate Nausea Verified 12/21/20 09:54 [Erythromycin Base] Metronidazole HCl * AdvReac Intermediate Cramps Verified 12/21/20 09:54 [From Flagyl] lidocaine AdvReac Rash Verified 12/21/20 09:54 grass Allergy Mild unknown Uncoded 12/21/20 09:54 dust Allergy unknown Uncoded 12/21/20 09:54 - Social History Does the pt smoke?: No Smoking Status: Never smoker Does the pt drink ETOH?: Yes Does the pt have substance abuse?: No - Immunizations Immunizations are current?: Yes - POLST Patient has POLST: No Results - Vitals Vitals: Vital Signs - 24 hr 12/21/20 09:43 Temperature 36.8 C Heart Rate 76 Respiratory 18 Rate O2 Saturation 97 Oxygen O2 Source Room air
--- NOTE | 2020-12-21 11:11 | ED Physician Documentation ---
PD HPI DYSPNEA - Stated complaint Stated Complaint: HIGH BP, HEADACHE - Chief complaint Chief Complaint: Cardiac - History obtained from History obtained from: Patient - History of Present Illness Timing - onset: How many weeks ago (1) Timing - onset during: Rest, Exertion (she has noted times of feeling dyspnea and some substernal pain/pressure. Will note it at rest sometimes, particular in the mornings. Also feeling fatigue and dyspnea with walking (takes regular walks at brisk pace and has not been able to do as briskly this week).) Timing - details: Abrupt onset, Still present, Waxing and waning Inciting event(s): No: Out of meds, URI (denies cough, fever, sore throat. But does have aches and fatigue, malaise.) Improved by: Rest Associated symptoms: Chest pain / discomfort (pressure feeling), Other (she has noted her BP elevated at home the past several days up to 140-150/110, with her normal being usually 100-110 systolic.). No: Fever, Cough, Bilateral edema Similar symptoms before: Has not had sx before Recently seen: Not recently seen Review of Systems Constitutional: denies: Fever, Chills Nose: denies: Rhinorrhea / runny nose, Congestion Throat: denies: Sore throat Cardiac: denies: Palpitations, Pedal edema, Calf pain Respiratory: reports: Dyspnea. denies: Cough, Wheezing GI: reports: Nausea. 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: Hysterectomy Derm: Skin cancer surgery - Present Medications Home Medications: Ambulatory Orders Medication Instructions Recorded Confirmed Eszopiclone [Lunesta] 2 mg PO HS 08/15/13 12/21/20 Methamphetamine HCl 5 mg PO BID 12/16/13 12/21/20 HYDROcod/ACETAM 5/325 [Vicodin 1 - 2 ea PO Q6H PRN #15 tablet 06/18/14 12/21/20 5/325] DULoxetine [Cymbalta] 1 tab PO DAILY 04/06/17 12/21/20 Vitamin B Complex/Folic Acid 1 tab PO DAILY 04/06/17 12/21/20 [Vitamin B-100 Complex Tablet] Cholecalciferol (Vitamin D3) 2,000 unit PO DAILY 01/02/19 12/21/20 [Vitamin D] Albuterol Sulf [Ventolin Hfa 1 - 2 puffs INH Q4HR PRN #1 inhaler 12/21/20 Inhaler] Famotidine [Pepcid] 20 mg PO DAILY #30 tablet 12/21/20 - Allergies Allergies/Adverse Reactions: Allergies Allergy/AdvReac Type Severity Reaction Status Date / Time bacitracin Allergy Rash Verified 12/21/20 09:54 [From Triple Antibiotic] bacitracin zinc * Allergy Rash Verified 12/21/20 09:54 [From Triple Antibiotic] neomycin sulfate * Allergy Rash Verified 12/21/20 09:54 [From Triple Antibiotic] nitrofurantoin Allergy Rash Verified 12/21/20 09:54 [From Macrobid] nitrofurantoin Allergy Rash Verified 12/21/20 09:54 macrocrystalline * [From Macrobid] polymyxin B Allergy Rash Verified 12/21/20 09:54 [From Triple Antibiotic] polymyxin B sulfate * Allergy Rash Verified 12/21/20 09:54 [From Triple Antibiotic] azithromycin [From Zithromax] AdvReac Intermediate Hallucinati Verified 12/21/20 09:54 ons erythromycin base AdvReac Intermediate Nausea Verified 12/21/20 09:54 [Erythromycin Base] Metronidazole HCl * AdvReac Intermediate Cramps Verified 12/21/20 09:54 [From Flagyl] lidocaine AdvReac Rash Verified 12/21/20 09:54 grass Allergy Mild unknown Uncoded 12/21/20 09:54 dust Allergy unknown Uncoded 12/21/20 09:54 - Social History Does the pt smoke?: No Smoking Status: Never smoker Does the pt drink ETOH?: Yes Does the pt have substance abuse?: No - Immunizations Immunizations are current?: Yes - POLST Patient has POLST: No PD ED PE NORMAL - Vitals Vital signs reviewed: Yes - General General: Alert and oriented X 3, No acute distress, Well developed/nourished - HEENT HEENT: Moist mucous membranes, Pharynx benign - Neck Neck: Supple, no meningeal sign, No adenopathy - Cardiac Cardiac: RRR, No murmur - Respiratory Respiratory: Clear bilaterally - Abdomen Abdomen: Normal bowel sounds, Soft, Non distended, No organomegaly, Other (mild epigastric tender without guarding. RUQ not tender. No chestwall tenderness. ) Results - Vitals Vitals: Vital Signs - 24 hr 12/21/20 12/21/20 12/21/20 09:43 10:14 11:56 Temperature 36.8 C 36.2 C L Heart Rate 76 63 Respiratory 18 16 Rate Blood Pressure 133/70 H Blood Pressure 146/86 H [Left] O2 Saturation 97 99 12/21/20 13:11 Temperature Heart Rate 66 Respiratory 18 Rate Blood Pressure 128/79 Blood Pressure [Left] O2 Saturation 98 Oxygen O2 Source Room air - Labs Labs: Laboratory Tests 12/21/20 12/21/20 12/21/20 11:27 11:27 11:27 WBC 3.9 L RBC 3.88 L Hgb 12.7 Hct 38.4 MCV 99.0 MCH 32.7 H MCHC 33.1 RDW 12.9 Plt Count 143 MPV 8.9 Neut # (Auto) 1.7 Lymph # (Auto) 1.6 [place] # (Auto) 0.5 Eos # (Auto) 0.1 Baso # (Auto) 0.0 Absolute Nucleated RBC 0.00 Nucleated RBC % 0.0 Sodium 139 Potassium 4.3 Chloride 101 Carbon Dioxide 28 Anion Gap 10.0 BUN 19 Creatinine 0.8 Estimated GFR (MDRD) 72 L Glucose 98 Calcium 9.5 Magnesium 2.1 Total Bilirubin 0.6 AST 18 ALT 18 Alkaline Phosphatase 64 Troponin I High Sens B-Natriuretic Peptide 9 Total Protein 6.5 L Albumin 4.0 Globulin 2.5 Albumin/Globulin Ratio 1.6 Lipase 27 12/21/20 11:27 WBC RBC Hgb Hct MCV MCH MCHC RDW Plt Count MPV Neut # (Auto) Lymph # (Auto) [place] # (Auto) Eos # (Auto) Baso # (Auto) Absolute Nucleated RBC Nucleated RBC % Sodium Potassium Chloride Carbon Dioxide Anion Gap BUN Creatinine Estimated GFR (MDRD) Glucose Calcium Magnesium Total Bilirubin AST ALT Alkaline Phosphatase Troponin I High Sens 2.8 B-Natriuretic Peptide Total Protein Albumin Globulin Albumin/Globulin Ratio Lipase PD MEDICAL DECISION MAKING - ED course Complexity details: reviewed results (labs are good. Her BP is relatively high for her, but not in the range I would think needs treated off hand, and particularly if only the past few days while not feeling well. ), considered differential (she has substernal discomfort, with feeling of wheezing at times. Noted with activity. Consider anginal equivalent, though she has components that seem more reflux with triggering bronchial spasm.), d/w patient Departure - Departure Disposition: 01 Home, Self Care Clinical Impression: Dyspnea Qualifiers: Dyspnea type: dyspnea on exertion Qualified Code(s): R06.00 - Dyspnea, unspecified Fatigue Qualifiers: Fatigue type: unspecified Qualified Code(s): R53.83 - Other fatigue Reflux esophagitis Qualifiers: Esophagitis bleeding: without hemorrhage Qualified Code(s): K21.00 - Gastro- esophageal reflux disease with esophagitis, without bleeding Condition: Stable Record reviewed to determine appropriate education?: Yes Instructions: ED Dyspnea Shortness of Breath Follow-Up: Samra Pfeiffer PA-C [Primary Care Provider] - Prescriptions: Albuterol Sulf [Ventolin Hfa Inhaler] 1 - 2 puffs INH Q4HR PRN #1 inhaler PRN Reason: Shortness Of Air/Wheezing Famotidine [Pepcid] 20 mg PO DAILY #30 tablet Comments: Your blood pressure is relatively elevated for you but still not significantly high. I would see how its doing on trend and follow-up with your primary care regarding any potential treatment for it. I would not initiate any blood pressure medicine at this point. Aim for low-salt diet. Your blood tests and EKG are normal without any signs of obvious heart failure or heart injury. Your lungs are clear on x-ray. That said, it is possible to be having some anginal equivalent with your symptoms. Follow-up with your primary care office on Tuesday as planned. Discussed with them potential referral for stress testing to fully exclude heart disease. Some of your symptoms sound like acid reflux with triggering of some of bronchial spasming. Use famotidine acid reducing medicine daily for the next several weeks. Also albuterol inhaler periodically if needed for the shortness of breath episodes. Discharge Date/Time: 12/21/20 13:11
[2020-12-21 11:32] LABS: BASOPHILS % (AUTO) 0.5 %; EOSINOPHILS # (AUTO) 0.1 10^3/uL (0.0-0.7); EOSINOPHILS % (AUTO) 2.3 %; HCT - HEMATOCRIT 38.4 % (37.0-47.0); HGB - HEMOGLOBIN 12.7 g/dL (12.0-16.0); LYMPHOCYTES # (AUTO) 1.6 10^3/uL (1.5-3.5); LYMPHOCYTES % (AUTO) 41.5 %; MEAN CORPUSCULAR HEMOGLOBIN 32.7 pg (27.0-31.0); MEAN CORPUSCULAR HGB CONC 33.1 g/dL (32.0-36.0); MEAN PLATELET VOLUME 8.9 fL (7.9-10.8); MONOCYTES # (AUTO) 0.5 10^3/uL (0.0-1.0); MONOCYTES % (AUTO) 11.9 %; NEUTROPHILS # (AUTO) 1.7 10^3/uL (1.5-6.6); NEUTROPHILS % (AUTO) 43.5 %; PLT - PLATELET COUNT 143 10^3/uL (130-450); RED BLOOD COUNT 3.88 10^6/uL (4.20-5.40); RED CELL DISTRIBUTION WIDTH 12.9 % (12.0-15.0); WHITE BLOOD COUNT 3.9 x10^3/uL (4.8-10.8)
[2020-12-21 11:53] LABS: ALBUMIN/GLOBULIN RATIO 1.6 (1.0-2.2); BILIRUBIN,TOTAL 0.6 mg/dL (0.2-1.0); CALCIUM 9.5 mg/dL (8.5-10.3); CREATININE 0.8 mg/dL (0.4-1.0); MAGNESIUM 2.1 mg/dL (1.7-2.8); POTASSIUM 4.3 mmol/L (3.5-5.0); TOTAL PROTEIN 6.5 g/dL (6.7-8.2)
--- NOTE | 2020-12-21 11:58 | XRAY Report ---
PROCEDURE: Chest 1 View X-Ray INDICATIONS: Chest Pain TECHNIQUE: One view of the chest was acquired. COMPARISON: 12/31/2015 FINDINGS: Surgical changes and devices: None. Lungs and pleura: No pleural effusions or pneumothorax. Lungs are clear. Mediastinum: Mediastinal contours appear normal. Heart size is normal. Bones and chest wall: No suspicious bony lesions. Overlying soft tissues appear unremarkable. IMPRESSION: No evidence acute pulmonary process. Reviewed by: Andrey Kwok MD on 12/21/2020 10:56 AM [facility] Approved by: Andrey Kwok MD on 12/21/2020 10:56 AM [facility] Station ID: [id number]
[2020-12-21 13:13] VITALS: BP 128/79
== END 2020-12-21 13:11 | disposition home or self-care (01) ==
LOC: ED 09:37
DX: K21.00 Gastro-esophageal reflux disease with esophagitis, without bleeding (principal); R06.00 Dyspnea, unspecified; R53.83 Other fatigue; I10 Essential (primary) hypertension
CPT/HCPCS: 36415; 80053; 83690; 83735; 83880; 84484; 85025; 93005; 99284

== ENCOUNTER 2021-01-15 11:10 | Outpatient (CLI) | payer MEDICARE ==
--- NOTE | 2021-01-16 10:49 | Mammography Report ---
BILATERAL DIGITAL DIAGNOSTIC MAMMOGRAM 3D/2D: 01/15/2021 CLINICAL: Diffuse right breast pain. Diffuse left breast pain. Comparison is made to exams dated: 10/26/2019 mammogram, 10/25/2018 mammogram, 09/07/2017 mammogram, an d 04/01/2016 mammogram - [facility]. The tissue of both breasts is predominantly fa tty. No significant masses, calcifications, or other findings are seen in either breast. There has been no significant interval change. IMPRESSION: NEGATIVE There is no mammographic evidence of malignancy. A 1 year screening mammogram is recommended. This exam was interpreted at Station ID: [id number]. NOTE: For mammograms, a report in lay terms will be sent to the patient. Approximately 15% of breast malignancies will not be visualized mammographically. In the management of a palpable breast mass, a negative mammogram must not discourage biopsy of a clinically suspicious lesion. Electronically Signed By: Mo Samuel M.D., jr/penrad:01/15/2021 11:54:43 ACR BI-RADS Category 1: Negative 3341F PARENCHYMAL PATTERN: (F) - The breast(s) demonstrate(s) diffuse fatty replacement. BI-RADS CATEGORY: (1) - 1 RECOMMENDATION: (ANNUAL) - Recommend routine annual screening mammography. [id number] 1 year screening LATERALITY: (B)
== END 2021-01-15 11:11 | disposition home or self-care (01) ==
LOC: DI 11:10
PROVIDERS: ATTEND Physician Assistant Medical
DX: N64.4 Mastodynia (principal)

== ENCOUNTER 2021-01-21 10:47 | Outpatient (CLI) | payer MEDICARE ==
[2021-01-21 11:55] LABS: BASOPHILS % (AUTO) 0.5 %; EOSINOPHILS # (AUTO) 0.1 10^3/uL (0.0-0.7); EOSINOPHILS % (AUTO) 1.8 %; HCT - HEMATOCRIT 40.7 % (37.0-47.0); HGB - HEMOGLOBIN 13.3 g/dL (12.0-16.0); LYMPHOCYTES # (AUTO) 1.7 10^3/uL (1.5-3.5); LYMPHOCYTES % (AUTO) 44.2 %; MEAN CORPUSCULAR HGB CONC 32.7 g/dL (32.0-36.0); MEAN CORPUSCULAR VOLUME 98.1 fL (81.0-99.0); MEAN PLATELET VOLUME 9.2 fL (7.9-10.8); MONOCYTES # (AUTO) 0.5 10^3/uL (0.0-1.0); MONOCYTES % (AUTO) 13.1 %; NEUTROPHILS # (AUTO) 1.6 10^3/uL (1.5-6.6); NEUTROPHILS % (AUTO) 40.4 %; PLT - PLATELET COUNT 170 10^3/uL (130-450); RED BLOOD COUNT 4.15 10^6/uL (4.20-5.40); RED CELL DISTRIBUTION WIDTH 12.9 % (12.0-15.0); WHITE BLOOD COUNT 3.9 x10^3/uL (4.8-10.8)
== END 2021-01-21 10:48 | disposition home or self-care (01) ==
LOC: DI.N 10:47 → LAB.N 10:48
PROVIDERS: ATTEND Physician Assistant Medical
DX: D69.6 Thrombocytopenia, unspecified (principal)
CPT/HCPCS: 36415; 85025

== ENCOUNTER 2021-01-22 15:46 | Outpatient (CLI) | payer MEDICARE ==
[2021-01-22 17:50] LABS: BASOPHILS % (AUTO) 0.5 %; EOSINOPHILS # (AUTO) 0.1 10^3/uL (0.0-0.7); EOSINOPHILS % (AUTO) 1.1 %; HGB - HEMOGLOBIN 13.9 g/dL (12.0-16.0); LYMPHOCYTES # (AUTO) 0.9 10^3/uL (1.5-3.5); MEAN CORPUSCULAR HEMOGLOBIN 32.6 pg (27.0-31.0); MEAN CORPUSCULAR HGB CONC 33.1 g/dL (32.0-36.0); MEAN CORPUSCULAR VOLUME 98.4 fL (81.0-99.0); MEAN PLATELET VOLUME 9.6 fL (7.9-10.8); MONOCYTES # (AUTO) 0.6 10^3/uL (0.0-1.0); MONOCYTES % (AUTO) 13.2 %; NEUTROPHILS # (AUTO) 2.9 10^3/uL (1.5-6.6); PLT - PLATELET COUNT 166 10^3/uL (130-450); RED BLOOD COUNT 4.27 10^6/uL (4.20-5.40); RED CELL DISTRIBUTION WIDTH 13.1 % (12.0-15.0); WHITE BLOOD COUNT 4.4 x10^3/uL (4.8-10.8)
== END 2021-01-22 15:47 | disposition home or self-care (01) ==
LOC: LAB.N 15:46
PROVIDERS: ATTEND Physician Assistant Medical
DX: D69.6 Thrombocytopenia, unspecified (principal)
CPT/HCPCS: 36415; 85025

== ENCOUNTER 2021-01-28 17:01 | Outpatient (CLI) | payer MEDICARE ==
[2021-01-28 20:45] LABS: BASOPHILS % (AUTO) 0.6 %; EOSINOPHILS # (AUTO) 0.1 10^3/uL (0.0-0.7); EOSINOPHILS % (AUTO) 1.6 %; HCT - HEMATOCRIT 42.3 % (37.0-47.0); HGB - HEMOGLOBIN 13.7 g/dL (12.0-16.0); LYMPHOCYTES # (AUTO) 1.9 10^3/uL (1.5-3.5); LYMPHOCYTES % (AUTO) 38.6 %; MEAN CORPUSCULAR HEMOGLOBIN 31.9 pg (27.0-31.0); MEAN CORPUSCULAR HGB CONC 32.4 g/dL (32.0-36.0); MEAN CORPUSCULAR VOLUME 98.6 fL (81.0-99.0); MEAN PLATELET VOLUME 9.5 fL (7.9-10.8); MONOCYTES # (AUTO) 0.4 10^3/uL (0.0-1.0); NEUTROPHILS # (AUTO) 2.6 10^3/uL (1.5-6.6); PLT - PLATELET COUNT 164 10^3/uL (130-450); RED BLOOD COUNT 4.29 10^6/uL (4.20-5.40); RED CELL DISTRIBUTION WIDTH 12.8 % (12.0-15.0)
== END 2021-01-28 17:02 | disposition home or self-care (01) ==
LOC: LAB.N 17:01
PROVIDERS: ATTEND Physician Assistant Medical
DX: D69.6 Thrombocytopenia, unspecified (principal)
CPT/HCPCS: 36415; 85025

== ENCOUNTER 2021-03-03 08:00 | Outpatient (CLI) | payer MEDICARE ==
[2021-03-03 18:20] LABS: ALBUMIN 4.1 g/dL (3.2-5.5); ALBUMIN/GLOBULIN RATIO 1.7 (1.0-2.2); ALKALINE PHOSPHATASE 67 IU/L (42-121); ALT ALANINE AMINOTRANSFERASE 19 IU/L (10-60); AST ASPARTATE AMINOTRANSFERASE 18 IU/L (10-42); BILIRUBIN,TOTAL 0.7 mg/dL (0.2-1.0); BUN - BLOOD UREA NITROGEN 17 mg/dL (6-20); CALCIUM 9.1 mg/dL (8.5-10.3); CARBON DIOXIDE - CO2 30 mmol/L (21-32); CHLORIDE 101 mmol/L (101-111); CHOL/HDL RATIO 2.9 (<4.4); CHOLESTEROL 223 mg/dL; CREATININE 0.8 mg/dL (0.4-1.0); GFR - MDRD 72 (>89); GLUCOSE 94 mg/dL (70-100); HDL CHOLESTEROL 77 mg/dL; LDL CHOLESTEROL,CALCULATED 122 mg/dL; LDL/HDL RATIO 1.6 (<4.4); POTASSIUM 3.9 mmol/L (3.5-5.0); SODIUM 139 mmol/L (135-145); TOTAL PROTEIN 6.5 g/dL (6.7-8.2); TRIGLYCERIDES 122 mg/dL; VLDL CHOLESTEROL 24 mg/dL
== END 2021-03-03 23:59 | disposition home or self-care (01) ==
LOC: LAB.WCP 08:00
PROVIDERS: ATTEND Physician Assistant Medical
DX: E78.5 Hyperlipidemia, unspecified (principal)
CPT/HCPCS: 36415; 80053; 80061; 83721

== ENCOUNTER 2021-04-01 16:17 | Outpatient (CLI) | payer MEDICARE | END 2021-04-01 16:18 | disposition EMS.NT | LOC: EMS 16:17 | DX: R07.89 Other chest pain (principal); R53.81 Other malaise; L72.9 Follicular cyst of the skin and subcutaneous tissue, unspecified ==

== ENCOUNTER 2021-04-07 08:00 | Outpatient (CLI) | payer MEDICARE ==
[2021-04-07 17:49] LABS: BASOPHILS % (AUTO) 0.7 %; EOSINOPHILS # (AUTO) 0.1 10^3/uL (0.0-0.7); EOSINOPHILS % (AUTO) 1.4 %; HCT - HEMATOCRIT 38.5 % (37.0-47.0); HGB - HEMOGLOBIN 12.4 g/dL (12.0-16.0); LYMPHOCYTES # (AUTO) 1.6 10^3/uL (1.5-3.5); LYMPHOCYTES % (AUTO) 37.5 %; MEAN CORPUSCULAR HEMOGLOBIN 31.7 pg (27.0-31.0); MEAN CORPUSCULAR HGB CONC 32.2 g/dL (32.0-36.0); MEAN CORPUSCULAR VOLUME 98.5 fL (81.0-99.0); MEAN PLATELET VOLUME 9.4 fL (7.9-10.8); MONOCYTES # (AUTO) 0.4 10^3/uL (0.0-1.0); MONOCYTES % (AUTO) 10.3 %; NEUTROPHILS # (AUTO) 2.1 10^3/uL (1.5-6.6); NEUTROPHILS % (AUTO) 49.9 %; PLT - PLATELET COUNT 173 10^3/uL (130-450); RED BLOOD COUNT 3.91 10^6/uL (4.20-5.40); RED CELL DISTRIBUTION WIDTH 13.1 % (12.0-15.0); WHITE BLOOD COUNT 4.3 x10^3/uL (4.8-10.8)
== END 2021-04-07 23:59 | disposition home or self-care (01) ==
LOC: LAB.WCP 08:00
PROVIDERS: ATTEND Physician Assistant Medical
DX: D69.6 Thrombocytopenia, unspecified (principal)
CPT/HCPCS: 36415; 85025

== ENCOUNTER 2021-06-05 08:00 | Outpatient (CLI) | payer MEDICARE | END 2021-06-05 23:59 | disposition home or self-care (01) | LOC: LAB.N 08:00 | PROVIDERS: ATTEND Nurse Practitioner | DX: R53.83 Other fatigue (principal); Z20.822 Contact with and (suspected) exposure to COVID-19 ==

== ENCOUNTER 2021-08-19 12:13 | Outpatient (CLI) | payer MEDICARE ==
[2021-08-19 12:33] LABS: BASOPHILS % (AUTO) 0.2 %; EOSINOPHILS # (AUTO) 0.1 10^3/uL (0.0-0.7); EOSINOPHILS % (AUTO) 1.4 %; HCT - HEMATOCRIT 41.5 % (37.0-47.0); HGB - HEMOGLOBIN 13.6 g/dL (12.0-16.0); LYMPHOCYTES # (AUTO) 1.7 10^3/uL (1.5-3.5); MEAN CORPUSCULAR HEMOGLOBIN 32.6 pg (27.0-31.0); MEAN CORPUSCULAR HGB CONC 32.8 g/dL (32.0-36.0); MEAN CORPUSCULAR VOLUME 99.5 fL (81.0-99.0); MEAN PLATELET VOLUME 9.1 fL (7.9-10.8); MONOCYTES # (AUTO) 0.5 10^3/uL (0.0-1.0); MONOCYTES % (AUTO) 11.2 %; NEUTROPHILS % (AUTO) 47.2 %; PLT - PLATELET COUNT 164 10^3/uL (130-450); RED BLOOD COUNT 4.17 10^6/uL (4.20-5.40); RED CELL DISTRIBUTION WIDTH 12.8 % (12.0-15.0); WHITE BLOOD COUNT 4.2 x10^3/uL (4.8-10.8)
[2021-08-19] MEDS ORDERED: GADOBUTROL 10 MMOL/10 ML VIAL ONE (12:54)
[2021-08-19 13:07] LABS: ALBUMIN 4.6 g/dL (3.2-5.5); ALBUMIN/GLOBULIN RATIO 1.6 (1.0-2.2); BILIRUBIN,TOTAL 0.8 mg/dL (0.2-1.0); CALCIUM 9.6 mg/dL (8.5-10.3); CREATININE 0.6 mg/dL (0.4-1.0); POTASSIUM 4.3 mmol/L (3.5-5.0); TOTAL PROTEIN 7.5 g/dL (6.7-8.2)
[2021-08-19] MEDS ORDERED: GADOBUTROL 10 MMOL/10 ML VIAL IVP ONE (16:37)
--- NOTE | 2021-08-19 18:16 | MRI Report ---
PROCEDURE: Brain W/WO INDICATIONS: TENSION HEADACHE CONTRAST: IV CONTRAST: Gadavist ml: 9.8 TECHNIQUE: Noncontrast axial T1 spin echo, axial T2 fast spin echo, sagittal and axial FLAIR, coronal T2 fast sp in echo, axial gradient echo, axial diffusion and ADC through the brain. After the administration of contrast, axial and coronal T1 spin echo with fat saturation through the brain. COMPARISON: None. FINDINGS: Image quality: Excellent. CSF spaces: Basal cisterns are patent. No extra-axial fluid collections. Ventricles are normal in size and shape. Brain: No midline shift. No intracranial bleeds or masses. No abnormal intracranial enhancement. There is mild cerebral volume loss for age. There is minimal periventricular white matter chronic sm all vessel ischemic change. The brainstem appears normal. Diffusion-weighted images demonstrate no acute ischemic insults. No chronic ischemic insults. Normal intravascular flow voids are present. D ural sinuses demonstrate normal postcontrast enhancement. Skull and face: Calvarial marrow is normal in signal. Orbits appear normal. Sinuses: Sinuses and mastoids appear clear. IMPRESSION: 1. No acute intracranial disease process. 2. No areas of acute or chronic infarction. 3. No intracranial hemorrhage. 4. No abnormal intracranial mass or mass effect. 5. No suspicious postcontrast enhancement. Reviewed by: Taylor Hendrickson MD, PhD on 08/19/2021 5:15 PM [facility] Approved by: Taylor Hendrickson MD, PhD on 08/19/2021 5:15 PM [facility] Station ID: [id number]
== END 2021-08-19 12:14 | disposition home or self-care (01) ==
LOC: LAB 12:13
PROVIDERS: ATTEND Physician Assistant Medical
DX: E78.5 Hyperlipidemia, unspecified (principal); D69.6 Thrombocytopenia, unspecified; G44.209 Tension-type headache, unspecified, not intractable
CPT/HCPCS: 36415; 70553; 80053; 85025; A9585

== ENCOUNTER 2021-09-17 08:57 | Outpatient (CLI) | payer MEDICARE ==
--- NOTE | 2021-09-17 10:14 | CARDIAC PROCEDURE NOTE ---
Stress Test Report Service Date: 09/17/21 Service Time: 09:00 Ordering Provider: Samra Pfeiffer PA-C Indication for Test: Assess for a contribution of cardiac ischemia to patient's reported gradual decrease in exercise tolerance and intermittent chest pain. Significant Medical History: Arlyn has a complex past medical history that appears to include the following: -Longstanding chronic fatigue syndrome/fibromyalgia (for which she takes Cymbalta at a low dose with poor toleration of attempts at higher dosing). -Recent work-up for gradually evolving problems with cognition, with brain MR imaging indicating cerebral volume loss and evidence of microvascular changes. -High blood pressure that appears to be episodic and severe at times, often associated with headache when BP is elevated; not currently treated with antihypertensive medication. -Obstructive sleep apnea with attempt at CPAP treatment that has not been successful and for which repeat follow-up should be undertaken. -Esophageal spasm manifest by intermittent sensation of "throat closing" with eating and "a catch" in her chest, associated with cough and reflux symptoms, with some benefit of intermittent albuterol treatment. She denies experiencing associated chest discomfort with this symptom complex. She was seen in early July by her referring provider, noting a gradual decrease in exercise tolerance. Whereas she had been able to walk several days per week up to 1 hour, she was finding that she was doing much less overall at home and only able to take walks once or twice per week, for at most 30 minutes at a time. Upon further query, this limitation appears to be due to sequelae of her chronic musculoskeletal pain syndrome, with exercise limitation by pain during exercise and observation of "needing to pay the lal" if she overexerts herself. At the early July visit she also reported having experienced an episode of fish pitcher awakening after some unusually marked vivid dreams, with headache, high blood pressure and chest discomfort, not associated with other cardiovascular symptoms. She reports that she has had a similar sensation of "penetrating" chest discomfort intermittently over several years and underwent a stress test approximately 7 years ago that she recalls being told was normal. She has not experienced chest discomfort with exertion at any time. Cardiac Risk Factors: Arlyn has intermittent hypertension (not on drug therapy), borderline elevated cholesterol but denies history of diabetes, cigarette smoking ever and family history of ASCVD events. Type of Stress Test: ETT with Myocardial Perfusion Imaging Procedure: -Exercise Treadmill Test- After signing informed consent, the patient underwent resting 99Tc-Myoview imaging and the performed treadmill exercise using a Ty protocol. The patient exercised for 7 minutes 7 seconds and achieved a peak heart rate of 145 (92 percent predicted maximum heart rate for age), and an estimated workload of 10.2 METS. The test was terminated due to fatigue/shortness of breath after achieving her target heart rate. Resting heart rate: 68 Peak heart rate: 145 Normal response to exercise. Resting BP: 162/94 Peak BP: 198/89 Hypertensive at rest with physiologic BP response to exercise. Rhythm during exercise: Sinus rhythm with rare isolated premature atrial complexes. Symptoms: Fatigue and shortness of breath; she denied chest pressure/discomfort. EKG at rest showed normal sinus rhythm, normal in all aspects. EKG at peak stress showed no ischemia by EKG criteria. In Recovery heart rate rapidly/normally returned to baseline, blood pressure gradually decreased towards baseline level. Nuclear imaging performed at rest and with stress and will be reported separately. Luis Manuel Patricia MD, was present throughout this treadmill/pharmacologic stress study and supervised it in its entirety. Summary: 1) Exercise tolerance slightly above average for age as evidenced by BERNIE of -11% 2) Normal resting EKG. 3) Adequate level of exercise was achieved on this treadmill stress test. 4) Hypertensive at rest with normal BP response to exercise. 5) No ischemic changes by EKG criteria were seen at peak stress. 6) Nuclear image interpretation shows normal left ventricular size and systolic function by gated analysis; SPECT image analysis reveals normal perfusion at rest and following peak stress, indicative of no prior infarct nor inducible ischemia. See separate report for more details. CONCLUSIONS: 1) Low risk treadmill stress myocardial imaging study, with intact exertional capacity and no symptom, EKG or SPECT evidence of prior infarct or inducible ischemia. 2) Hypertensive at rest, with report of periodic BP elevations chronically; patient has an arm BP cuff and is encouraged to perform formal self-monitoring, measuring and recording several blood pressures at rest at several times through the day and as well when having headaches (that have at times been associated with elevated BPs in the past).
--- NOTE | 2021-09-18 13:57 | Nuclear Medicine Report ---
PROCEDURE: Rest and exercise myocardial perfusion SPECT with gated imaging and ejection fraction INDICATIONS: CHEST PAIN RADIOPHARMACEUTICAL: 12.05 mCi Tc-99m Myoview IV at rest and 28.7 mCi Tc-99m Myoview IV at peak exer cise. [id number] was performed. TECHNIQUE: Radiopharmaceutical was injected at peak stress test, and also at rest. SPECT images wer e obtained. SPECT myocardial perfusion images were displayed in short axis, horizontal long axis, an d vertical long axis views. Gated images were reviewed using Auto[employer] software. COMPARISON: None available. FINDINGS: Raw data: There is good myocardial labeling by radiotracer. No significant motion artifacts. Lung- to-heart ratio is 0.27 (normal is less than 0.46 for tetrafosmin tracer). Left ventricle function: Gated images demonstrate normal left ventricle wall thickening. No segment al wall motion abnormality. No transient ischemic dilation; TID is 0.98 (normal less than 1.30). Th e left ventricle resting end-diastolic volume is 71 mL. Left ventricle stress ejection fraction is > 70%; normal values are above 45%. Myocardial perfusion: There is normal distribution of activity in the left and right ventricular bailey cardium. No fixed or reversible perfusion defects. IMPRESSION: 1. Normal myocardial perfusion images. No perfusion defect to suggest myocardial ischemia or infarct. 2. Normal left ventricular volume and systolic function. 3. Please correlate with stress EKG report. PQRS ATTESTATIONS: Measure 322 - Is this imaging test primarily performed on a low-risk surgery patient for preoperative evaluation within 30 days preceding their low-risk non-cardiac surgery? Low-risk surgery is defined as cardiac or myocardial infarction less than 1%, including (but not limited to) endoscopic pr ocedures, superficial procedures, cataract surgery, and excisional breast surgery: Answer: No Measure 323 - Is this imaging test performed primarily for the monitoring of an asymptomatic patient who had percutaneous coronary intervention on the visit date or within 2 years of the visit date? An swer: No Measure 324 - Is this imaging test performed primarily for the initial detection and risk assessment on an asymptomatic, low coronary heart disease patient? Low CHD risk definition = clinicians should consider the maximum number of available patient factors used to estimate risk based on [place] (A TP III criteria), typically age, gender, diabetes, smoking status, and use of blood pressure medicati on, and integrate age appropriate estimates for missing elements, such as LDL or standard blood press ure. Answer: No Reviewed by: Joanna Alva MD on 09/18/2021 1:56 PM PST Approved by: Joanna Alva MD on 09/18/2021 1:56 PM PST Station ID: [id number]
== END 2021-09-17 08:58 | disposition home or self-care (01) ==
LOC: DI 08:57
PROVIDERS: ATTEND Physician Assistant Medical
DX: R07.9 Chest pain, unspecified (principal); I10 Essential (primary) hypertension
CPT/HCPCS: 78452; 93016; 93017; 93018; A9500

== ENCOUNTER 2021-11-20 19:53 | Emergency (ER) | payer MEDICARE ==
[2021-11-20 20:34] LABS: BASOPHILS % (AUTO) 0.2 %; EOSINOPHILS % (AUTO) 0.9 %; HCT - HEMATOCRIT 39.1 % (37.0-47.0); LYMPHOCYTES # (AUTO) 1.6 10^3/uL (1.5-3.5); LYMPHOCYTES % (AUTO) 36.6 %; MEAN CORPUSCULAR HEMOGLOBIN 32.3 pg (27.0-31.0); MEAN CORPUSCULAR HGB CONC 33.2 g/dL (32.0-36.0); MEAN CORPUSCULAR VOLUME 97.3 fL (81.0-99.0); MEAN PLATELET VOLUME 8.9 fL (7.9-10.8); MONOCYTES # (AUTO) 0.4 10^3/uL (0.0-1.0); MONOCYTES % (AUTO) 9.7 %; NEUTROPHILS # (AUTO) 2.3 10^3/uL (1.5-6.6); NEUTROPHILS % (AUTO) 52.4 %; PLT - PLATELET COUNT 183 10^3/uL (130-450); RED BLOOD COUNT 4.02 10^6/uL (4.20-5.40); RED CELL DISTRIBUTION WIDTH 12.6 % (12.0-15.0); WHITE BLOOD COUNT 4.3 x10^3/uL (4.8-10.8)
--- NOTE | 2021-11-20 20:46 | ED Physician Documentation ---
History of Present Illness - Stated complaint Stated Complaint: HIGH BP - Chief complaint Chief Complaint: Cardiac - Additonal information Additional information: 66-year-old female presents the emergency department requesting evaluation for her blood pressure as well as to have her sleep apnea machine evaluated. She states that the machine is not functioning properly and she is waking up at night. She finds her self gasping as well as having palpitations. The symptoms began about 2 weeks ago. She denies any chest pain. No exertional shortness of air when out of bed. She does have a history that includes fibromyalgia myalgia as well as esophagitis. She also has ADD for which she takes stimulant medication. Patient takes a record of her blood pressure every morning and every night. They range between 120-180 systolic. She has never been treated for hypertension. She did have an essentially normal treadmill stress test in late September 2021. Review of Systems Constitutional: denies: Fever, Chills Eyes: reports: Reviewed and negative Nose: reports: Reviewed and negative Throat: reports: Reviewed and negative Cardiac: reports: Palpitations Respiratory: denies: Dyspnea, Cough GI: reports: Reviewed and negative : reports: Reviewed and negative Skin: reports: Reviewed and negative Musculoskeletal: reports: Reviewed and negative PD PAST MEDICAL HISTORY - Past Medical History Cardiovascular: Hypertension Respiratory: None Neuro: None Endocrine/Autoimmune: None GI: None : None HEENT: Other Psych: Depression, ADD/ADHD Musculoskeletal: Osteoarthritis, Fibromyalgia, Fatigue Derm: None - Past Surgical History Past Surgical History: Yes 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: Hysterectomy Derm: Skin cancer surgery - Present Medications Home Medications: Ambulatory Orders Medication Instructions Recorded Confirmed Eszopiclone [Lunesta] 2 mg PO HS 08/15/13 11/20/21 Methamphetamine HCl 5 mg PO BID 12/16/13 11/20/21 HYDROcod/ACETAM 5/325 [Vicodin 1 - 2 ea PO Q6H PRN #15 tablet 06/18/14 11/20/21 5/325] Vitamin B Complex/Folic Acid 1 tab PO DAILY 04/06/17 11/20/21 [Vitamin B-100 Complex Tablet] Cholecalciferol (Vitamin D3) 2,000 unit PO DAILY 01/02/19 11/20/21 [Vitamin D] Albuterol Sulf [Ventolin Hfa 1 - 2 puffs INH Q4HR PRN #1 inhaler 12/21/20 11/20/21 Inhaler] Famotidine [Pepcid] 20 mg PO DAILY #30 tablet 12/21/20 11/20/21 Celecoxib [CeleBREX] 100 mg PO BID 04/17/21 11/20/21 Propylene Glycol/Peg 400/Pf 1 - 5 drops EACHEYE UD 04/17/21 11/20/21 [Systane 0.3-0.4% Eye Drop] Ubidecarenone [Co Q-10] 30 mg PO DAILY 04/17/21 11/20/21 Biotin 5,000 mcg PO DAILY 05/22/21 11/20/21 DULoxetine [Cymbalta] 30 mg PO DAILY 05/22/21 11/20/21 Melatonin 1 mg PO HS 05/22/21 11/20/21 Magnesium Citrate 5 ml PO ONCE PRN 11/20/21 11/20/21 Multivitamin 1 tab ORAL DAILY 11/20/21 11/20/21 - Allergies Allergies/Adverse Reactions: Allergies Allergy/AdvReac Type Severity Reaction Status Date / Time grass pollen Allergy Mild Unknown Verified 11/20/21 20:01 house dust Allergy Mild Unknown Verified 11/20/21 20:01 bacitracin Allergy Rash Verified 11/20/21 20:01 [From Triple Antibiotic] bacitracin zinc * Allergy Rash Verified 11/20/21 20:01 [From Triple Antibiotic] neomycin sulfate * Allergy Rash Verified 11/20/21 20:01 [From Triple Antibiotic] nitrofurantoin Allergy Rash Verified 11/20/21 20:01 [From Macrobid] nitrofurantoin Allergy Rash Verified 11/20/21 20:01 macrocrystalline * [From Macrobid] polymyxin B Allergy Rash Verified 11/20/21 20:01 [From Triple Antibiotic] polymyxin B sulfate * Allergy Rash Verified 11/20/21 20:01 [From Triple Antibiotic] azithromycin [From Zithromax] AdvReac Intermediate Hallucinati Verified 11/20/21 20:01 ons erythromycin base AdvReac Intermediate Nausea Verified 11/20/21 20:01 [Erythromycin Base] Metronidazole HCl * AdvReac Intermediate Cramps Verified 11/20/21 20:01 [From Flagyl] lidocaine AdvReac Rash Verified 11/20/21 20:01 - Social History Does the pt smoke?: No Smoking Status: Never smoker Does the pt drink ETOH?: Yes Does the pt have substance abuse?: No - Immunizations Immunizations are current?: Yes - POLST Patient has POLST: No PD ED PE NORMAL - General General: Alert and oriented X 3, No acute distress, Well developed/nourished - HEENT HEENT: Atraumatic, Moist mucous membranes - Neck Neck: Supple, no meningeal sign, No adenopathy, No JVD - Cardiac Cardiac: RRR, No murmur, No gallop - Respiratory Respiratory: No respiratory distress - Abdomen Abdomen: Normal bowel sounds, Soft, Non tender - Back Back: No CVA TTP, No spinal TTP - Derm Derm: Normal color, Warm and dry, No rash - Extremities Extremities: No deformity, No tenderness to palpate, Normal ROM s pain - Neuro Neuro: Alert and oriented X 3, 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 Eye Opening: Spontaneous Motor: Obeys Commands Verbal: Oriented GCS Score: 15 Results - Vitals Vitals: Vital Signs - 24 hr 11/20/21 11/20/21 19:55 20:51 Temperature 36.4 C L Heart Rate 98 82 Respiratory 16 20 Rate Blood Pressure 180/98 H 152/81 H O2 Saturation 100 99 Oxygen O2 Source Room air - EKG (time done) 2005 Rate: Rate (enter#) (89) Rhythm: NSR [place]: Normal Intervals: Normal CA QRS: Normal Ischemia: Normal ST segments Compare to prior EKG: Unchanged from prior EKG Computer interpretation: Agree with computer - Labs Labs: Laboratory Tests 11/20/21 20:28 WBC 4.3 L RBC 4.02 L Hgb 13.0 Hct 39.1 MCV 97.3 MCH 32.3 H MCHC 33.2 RDW 12.6 Plt Count 183 MPV 8.9 Neut # (Auto) 2.3 Lymph # (Auto) 1.6 Bradley # (Auto) 0.4 Eos # (Auto) 0.0 Baso # (Auto) 0.0 Absolute Nucleated RBC 0.00 Nucleated RBC % 0.0 PD MEDICAL DECISION MAKING - ED course Complexity details: reviewed results, re-evaluated patient, considered differential, d/w patient ED course: 66-year-old female presents emergency department for evaluation of elevated blood pressure readings at home as well as intermittent palpitations that have b ecome more persistent over the last few weeks. She is also having trouble with her sleep apnea machine and would like the emergency department to interrogate it. I discussed that that was not something that we could do. Though she does have some elevated blood pressure readings they are inconsistent and often times normal. The screening EKG and serum chemistries today are essentially unremarkable. Negative troponin. Chest x-ray is negative. I suspect that some of the elevated blood pressure readings may be related to the poor sleep studies that she is undergoing. She is advised close follow-up with primary care doctor. She likely benefit from a Holter monitor for longer evaluation of the palpitations though while here in the emergency department she remained in sinus rhythm without ectopy. Emergent return precautions otherwise discussed. Departure - Departure Disposition: Home, Self Care Clinical Impression: Elevated blood pressure reading Sleep apnea syndrome Qualifiers: Sleep apnea type: unspecified type Qualified Code(s): G47.30 - Sleep apnea, unspecified Condition: Stable Record reviewed to determine appropriate education?: Yes Follow-Up: Samra Pfeiffer PA-C [Primary Care Provider] - Comments: Arlyn you came to the emergency department today to discuss palpitations, some elevated blood pressure readings as well as dysfunction with your sleep apnea machine. The emergency department cannot evaluate the sleep apnea machine. This should be done through the sleep study clinic. Some considerations for your palpitations could include the medications used to treat ADD versus high blood pressure or simply advanced age. This is something that should be discussed with your primary care provider. You may benefit from referral for a Holter monitor. The stress test completed in late September was reassuring without findings of myocardial ischemia And was interpreted as normal for age. Your blood pressure readings have been elevated at times. But this could be due to worsening sleep apnea. It is important to have another sleep study completed or have an interrogation of your machine. Please schedule an appointment with your primary care doctor as soon as possible. If at any point you develop chest pain or have shortness of air during the day when you are awake or walking then please return immediately to the ER for a second evaluation.
[2021-11-20 21:09] LABS: ALBUMIN/GLOBULIN RATIO 1.4 (1.0-2.2); BILIRUBIN,TOTAL 0.6 mg/dL (0.2-1.0); CALCIUM 9.6 mg/dL (8.5-10.3); CREATININE 0.8 mg/dL (0.4-1.0); POTASSIUM 4.1 mmol/L (3.5-5.0); TOTAL PROTEIN 6.8 g/dL (6.7-8.2)
--- NOTE | 2021-11-20 21:22 | XRAY Report ---
PROCEDURE: Chest 1 View X-Ray INDICATIONS: Chest Pain TECHNIQUE: One view of the chest was acquired. COMPARISON: Chest x-ray 12/21/2020 FINDINGS: Surgical changes and devices: None. Lungs and pleura: No pleural effusions or pneumothorax. Lungs are clear. Mediastinum: Mediastinal contours appear normal. Heart size is normal. Bones and chest wall: No suspicious bony lesions. Overlying soft tissues appear unremarkable. IMPRESSION: No acute pulmonary process. Reviewed by: Sheri Davidson MD on 11/20/2021 9:21 PM PST Approved by: Sheri Davidson MD on 11/20/2021 9:21 PM [facility] Station ID: [id number]
[2021-11-20 21:56] VITALS: BP 141/62
== END 2021-11-20 21:56 | disposition home or self-care (01) ==
LOC: ED 19:53
DX: G47.30 Sleep apnea, unspecified (principal); I10 Essential (primary) hypertension
CPT/HCPCS: 36415; 80053; 83690; 84484; 85025; 93005; 99282; 99284

== ENCOUNTER 2021-12-12 06:33 | Outpatient (CLI) | payer MEDICARE | END 2021-12-12 06:34 | disposition EMS.NT | LOC: EMS 06:33 | DX: R07.9 Chest pain, unspecified (principal); R06.02 Shortness of breath; R20.0 Anesthesia of skin ==

== ENCOUNTER 2022-05-05 08:00 | Outpatient (CLI) | payer MEDICARE | END 2022-05-05 23:59 | disposition home or self-care (01) | LOC: LAB.R 08:00 | PROVIDERS: ATTEND Physician Assistant Medical | DX: J02.0 Streptococcal pharyngitis (principal) | CPT/HCPCS: 87070 ==

== ENCOUNTER 2022-06-30 17:50 | Outpatient (CLI) | payer MEDICARE ==
[2022-06-30 21:24] LABS: BILIRUBIN,URINE NEGATIVE (NEGATIVE); GLUCOSE, URINE (UA) NEGATIVE (NEGATIVE); KETONES,URINE (UA) NEGATIVE (NEGATIVE); LEUKOCYTE ESTERASE, URINE NEGATIVE (NEGATIVE); NITRITE,URINE NEGATIVE (NEGATIVE); OCCULT BLOOD,URINE NEGATIVE (NEGATIVE); PH,URINE 7.5 PH (5.0-7.5); PROTEIN,URINE NEGATIVE (NEGATIVE); UROBILINOGEN,URINE 0.2 (NORMAL) E.U./dL (NORMAL)
[2022-06-30 21:25] LABS: CLARITY,URINE SL. CLOUDY (CLEAR)
[2022-06-30 22:49] LABS: BACTERIA,URINE Few /HPF (None Seen); RBC,URINE None Seen /HPF (0-5); SQUAMOUS EPITHELIAL CELL,UR FEW Squamous (<= Few); WBC,URINE 0-3 /HPF (0-5)
[2022-06-30 22:50] LABS: AMORPHOUS SEDIMENT,UR Moderate /LPF
== END 2022-06-30 17:51 | disposition home or self-care (01) ==
LOC: LAB.N 17:50
PROVIDERS: ATTEND Physician Assistant Medical
DX: N39.0 Urinary tract infection, site not specified (principal)
CPT/HCPCS: 81001; 87086

== ENCOUNTER 2022-07-01 10:02 | Outpatient (CLI) | payer MEDICARE ==
--- NOTE | 2022-07-01 10:45 | XRAY Report ---
PROCEDURE: Ankle 3 View LT INDICATIONS: LEFT ANKLE PAIN TECHNIQUE: 3 views of the ankle were acquired. COMPARISON: None FINDINGS: Bones: No fractures or dislocations. Ankle mortise is normally aligned. No suspicious bony lesions . No significant degenerative changes seen. Soft tissues: No tibiotalar joint effusion. Achilles tendon appears normal. IMPRESSION: 1. No evidence for acute osseous abnormality involving the left ankle. 2. Soft tissue swelling over the lateral malleolus. Reviewed by: Omega Jaimes MD on 07/01/2022 10:44 AM PDT Approved by: Omega Jaimes MD on 07/01/2022 10:44 AM PDT Station ID: [id number]
== END 2022-07-01 23:59 | disposition home or self-care (01) ==
LOC: DI.N 10:02
PROVIDERS: ATTEND Family Medicine
DX: S93.492A Sprain of other ligament of left ankle, initial encounter (principal)

== ENCOUNTER 2022-07-09 12:44 | Outpatient (CLI) | payer MEDICARE ==
--- NOTE | 2022-07-09 14:36 | DEXA Report ---
PROCEDURE: Dexa Spine and/or Hip INDICATIONS: POST MENOPAUSAL TECHNIQUE: Dual energy x-ray absorptiometry (DXA) was performed on a [employer]. Regions measur ed are the AP Spine, femoral neck, and if needed forearm. COMPARISON: DEXA 10/26/2019 FINDINGS: Lumbar Spine: Bone Mineral Density 0.996 g/cm/cm,T score -1.5, compared to -1.4 Left Hip: Bone Mineral Density 0.808 g/cm/cm,T score -1.6, compared to -1.6 Left Femoral Neck: Bone Mineral Density 0.786 g/cm/cm, T score -1.8, compared to -2.1 (T score greater or equal to -1.0: NORMAL) (T score from -1.1 to -2.4: OSTEOPENIA) (T score less than or equal to -2.5 to: OSTEOPOROSIS) Impression: Stable mild to moderate osteopenia within the lumbar spine and left hip with improved mineral density , now moderate osteopenia in the left femoral neck. Patients with diagnosis of osteoporosis or osteopenia should have regular bone mineral density assess ment. For those eligible for Medicare, routine testing is allowed once every 2 years. Testing frequ ency can be increased for patients who have rapidly progressing disease or for those who are receivin g medical therapy to restore bone mass. Reviewed by: Sheri Davidson MD on 07/09/2022 2:34 PM PDT Approved by: Sheri Davidson MD on 07/09/2022 2:34 PM PDT Station ID: [id number]
== END 2022-07-09 12:45 | disposition home or self-care (01) ==
LOC: DI 12:44
PROVIDERS: ATTEND Physician Assistant Medical
DX: Z78.0 Asymptomatic menopausal state (principal); M85.89 Other specified disorders of bone density and structure, multiple sites

== ENCOUNTER 2022-07-09 12:45 | Outpatient (CLI) | payer MEDICARE ==
--- NOTE | 2022-07-12 08:59 | Mammography Report ---
BILATERAL DIGITAL SCREENING MAMMOGRAM 3D/2D: 07/09/2022 CLINICAL: Routine screening. Comparison is made to exams dated: 01/15/2021 mammogram, 10/26/2019 mammogram, 10/25/2018 mammogram, 08/18 mammogram, and 04/01/2016 mammogram - [facility]. Both breasts are almost entirely fatty (category a/<25% glandular tissue). No significant masses, calcifications, or other findings are seen in either breast. There has been no significant interval change. IMPRESSION: NEGATIVE There is no mammographic evidence of malignancy. A 1 year screening mammogram is recommended. Based on the Tyrer Cuzick model (a risk assessment model) the patients lifetime risk is 9.2% and her 10 year risk is 4.8%. According to the ACR, ACS, and NCCN guidelines, an annual breast MRI exam juanita g with mammogram is recommended if the patients lifetime risk is 20% or greater. This exam was interpreted at Station ID: [id number]. NOTE: For mammograms, a report in lay terms will be sent to the patient. Approximately 15% of breast malignancies will not be visualized mammographically. In the management of a palpable breast mass, a negative mammogram must not discourage biopsy of a clinically suspicious lesion. Electronically Signed By: Romeo Izaguirre acr/fabio:07/09/2022 15:42:35 ACR BI-RADS Category 1: Negative 3341F PARENCHYMAL PATTERN: (F) - The breast(s) demonstrate(s) diffuse fatty replacement. BI-RADS CATEGORY: (1) - 1 RECOMMENDATION: (ANNUAL) - Recommend routine annual screening mammography. [id number] 1 year screening LATERALITY: (B)
== END 2022-07-09 12:46 | disposition home or self-care (01) ==
LOC: DI 12:45
DX: Z12.31 Encounter for screening mammogram for malignant neoplasm of breast (principal)

== ENCOUNTER 2022-07-14 10:46 | Outpatient (CLI) | payer MEDICARE ==
[2022-07-14 18:14] LABS: CHOL/HDL RATIO 2.9 (<4.4); CHOLESTEROL 203 mg/dL; HDL CHOLESTEROL 70 mg/dL; LDL CHOLESTEROL,CALCULATED 116 mg/dL; LDL/HDL RATIO 1.7 (<4.4); TRIGLYCERIDES 87 mg/dL; VLDL CHOLESTEROL 17 mg/dL
== END 2022-07-14 10:47 | disposition home or self-care (01) ==
LOC: LAB.N 10:46
PROVIDERS: ATTEND Physician Assistant Medical
DX: E78.5 Hyperlipidemia, unspecified (principal)
CPT/HCPCS: 36415; 80061; 83721

== ENCOUNTER 2022-07-14 14:46 | Outpatient (CLI) | payer MEDICARE | END 2022-07-14 23:59 | disposition home or self-care (01) | LOC: LAB.N 14:46 | PROVIDERS: ATTEND Physician Assistant Medical | DX: N39.0 Urinary tract infection, site not specified (principal); E78.5 Hyperlipidemia, unspecified | CPT/HCPCS: 36415; 80061; 83721; 87086 ==

== ENCOUNTER 2022-10-14 14:55 | Outpatient (CLI) | payer MEDICARE | END 2022-10-14 14:56 | disposition left against medical advice (07) | LOC: EMS 14:55 | DX: R20.0 Anesthesia of skin (principal); R51.9 Headache, unspecified ==

== ENCOUNTER 2022-10-21 08:00 | Outpatient (CLI) | payer MEDICARE ==
[2022-10-21 18:05] LABS: BILIRUBIN,URINE NEGATIVE (NEGATIVE); GLUCOSE, URINE (UA) NEGATIVE (NEGATIVE); KETONES,URINE (UA) NEGATIVE (NEGATIVE); LEUKOCYTE ESTERASE, URINE NEGATIVE (NEGATIVE); NITRITE,URINE NEGATIVE (NEGATIVE); OCCULT BLOOD,URINE NEGATIVE (NEGATIVE); PROTEIN,URINE NEGATIVE (NEGATIVE); UROBILINOGEN,URINE 0.2 (NORMAL) E.U./dL (NORMAL)
[2022-10-21 18:14] LABS: CLARITY,URINE CLEAR (CLEAR)
[2022-10-21 18:20] LABS: BACTERIA,URINE Few /HPF (None Seen); RBC,URINE 0-5 /HPF (0-5); SQUAMOUS EPITHELIAL CELL,UR FEW Squamous (<= Few); WBC,URINE 0-3 /HPF (0-5)
== END 2022-10-21 23:59 | disposition home or self-care (01) ==
LOC: LAB.WCP 08:00
PROVIDERS: ATTEND Physician Assistant Medical
DX: R35.0 Frequency of micturition (principal)
CPT/HCPCS: 81001; 87086

== ENCOUNTER 2022-11-21 11:41 | Outpatient (CLI) | payer MEDICARE ==
--- NOTE | 2022-11-21 18:29 | XRAY Report ---
PROCEDURE: Hip w/Pelvis 2-3V RT INDICATIONS: HIP PAIN, RIGHT, KNEE PAIN, RIGHT TECHNIQUE: AP pelvis with lateral view(s) of the right hip(s). COMPARISON: None. FINDINGS: Bones: No fractures or dislocations. Pelvic ring appears intact. No suspicious bony lesions. Subc hondral parasymphyseal sclerosis noted. Mild bilateral acetabular joint space narrowing. Sacroiliac j oints unremarkable. Soft tissues: The visualized bowel gas pattern is normal. No suspicious soft tissue calcifications. IMPRESSION: Mild degenerative changes without fracture Reviewed by: Lawrence Earl MD on 11/21/2022 5:28 PM [place] Approved by: Lawrence Earl MD on 11/21/2022 5:28 PM [place] Station ID: [id number]
--- NOTE | 2022-11-21 18:30 | XRAY Report ---
PROCEDURE: Knee 2 View RT INDICATIONS: HIP PAIN, RIGHT, KNEE PAIN,RIGHT TECHNIQUE: 2 views of the right knee(s) were acquired. COMPARISON: None. FINDINGS: Bones: No fractures or dislocations. No suspicious bony lesions. Soft tissues: No joint effusion. No suspicious soft tissue calcifications. IMPRESSION: Normal right knee radiographs Reviewed by: Lawrence Earl MD on 11/21/2022 5:29 PM [facility] Approved by: Lawrence Earl MD on 11/21/2022 5:29 PM [facility] Station ID: [id number]
== END 2022-11-21 11:42 | disposition home or self-care (01) ==
LOC: DI 11:41
PROVIDERS: ATTEND Family Medicine
DX: M16.11 Unilateral primary osteoarthritis, right hip (principal); M25.561 Pain in right knee

== ENCOUNTER 2023-02-05 11:47 | Emergency (ER) | payer MEDICARE ==
[2023-02-05 12:15] VITALS: BP 155/74
[2023-02-05] MEDS ORDERED: MELOXICAM 7.5 MG TABLET PO STA (12:24)
--- NOTE | 2023-02-05 12:44 | ED Physician Documentation ---
History of Present Illness - Stated complaint Stated Complaint: RT KNEE PX/SPASMS - Chief complaint Chief Complaint: Ext Problem - History obtained from History obtained from: Patient - History of Present Illness Pain level max: 6 Pain level now: 4 - Additonal information Additional information: Patient is a 67-year-old female who presents to the emergency department complaining of ongoing right knee pain. She states that she has had issues with the left leg in the past. She states that she is currently receiving physical therapy on her legs. Has recurrent "Achilles tendinitis" flareups bilaterally. She states that the physical therapist pressed down on her right knee yesterday and when she was out for a walk today with her walking sticks felt like her knee was giving out on her and causing "spasm". She states that she does have a primary care provider but does not see them very often as it is usually a several month wait to be seen. She has not seen an orthopedist. She states she has had recent x-rays of the right knee without significant findings. She does take hydrocodone at night for pain. No numbness or tingling. No recent trauma. Worse with walking, better with rest. 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 Derm: Skin cancer surgery - Present Medications Home Medications: Ambulatory Orders Medication Instructions Recorded Confirmed Eszopiclone [Lunesta] 2 mg PO HS 08/15/13 02/05/23 Methamphetamine HCl 5 mg PO BID 12/16/13 02/05/23 HYDROcod/ACETAM 5/325 [Vicodin 1 - 2 ea PO Q6H PRN #15 tablet 06/18/14 02/05/23 5/325] Vitamin B Complex/Folic Acid 1 tab PO DAILY 04/06/17 02/05/23 [Vitamin B-100 Complex Tablet] Cholecalciferol (Vitamin D3) 2,000 unit PO DAILY 01/02/19 02/05/23 [Vitamin D] Albuterol Sulf [Ventolin Hfa 1 - 2 puffs INH Q4HR PRN #1 inhaler 12/21/20 02/05/23 Inhaler] Famotidine [Pepcid] 20 mg PO DAILY #30 tablet 12/21/20 02/05/23 Celecoxib [CeleBREX] 100 mg PO BID 04/17/21 02/05/23 Propylene Glycol/Peg 400/Pf 1 - 5 drops EACHEYE UD 04/17/21 02/05/23 [Systane 0.3-0.4% Eye Drop] Ubidecarenone [Co Q-10] 30 mg PO DAILY 04/17/21 02/05/23 Biotin 5,000 mcg PO DAILY 05/22/21 02/05/23 DULoxetine [Cymbalta] 30 mg PO DAILY 05/22/21 02/05/23 Melatonin 1 mg PO HS 05/22/21 02/05/23 Magnesium Citrate 5 ml PO ONCE PRN 11/20/21 02/05/23 Multivitamin 1 tab ORAL DAILY 11/20/21 02/05/23 Meloxicam [Mobic] 7.5 mg PO BID PRN #20 tablet 02/05/23 Metoprolol Succinate [Toprol Xl] 25 mg PO ONCE 02/05/23 02/05/23 - Allergies Allergies/Adverse Reactions: Allergies Allergy/AdvReac Type Severity Reaction Status Date / Time grass pollen Allergy Mild Unknown Verified 11/20/21 20:01 house dust Allergy Mild Unknown Verified 11/20/21 20:01 bacitracin Allergy Rash Verified 11/20/21 20:01 [From Triple Antibiotic] bacitracin zinc * Allergy Rash Verified 11/20/21 20:01 [From Triple Antibiotic] neomycin sulfate * Allergy Rash Verified 11/20/21 20:01 [From Triple Antibiotic] nitrofurantoin Allergy Rash Verified 11/20/21 20:01 [From Macrobid] nitrofurantoin Allergy Rash Verified 11/20/21 20:01 macrocrystalline * [From Macrobid] polymyxin B Allergy Rash Verified 11/20/21 20:01 [From Triple Antibiotic] polymyxin B sulfate * Allergy Rash Verified 11/20/21 20:01 [From Triple Antibiotic] azithromycin [From Zithromax] AdvReac Intermediate Hallucinati Verified 11/20/21 20:01 ons erythromycin base AdvReac Intermediate Nausea Verified 11/20/21 20:01 [Erythromycin Base] Metronidazole HCl * AdvReac Intermediate Cramps Verified 11/20/21 20:01 [From Flagyl] lidocaine AdvReac Rash Verified 11/20/21 20:01 - Social History Does the pt smoke?: No Smoking Status: Never smoker Does the pt drink ETOH?: Yes Does the pt have substance abuse?: No - Immunizations Immunizations are current?: Yes - POLST Patient has POLST: No PD ED PE NORMAL - Vitals Vital signs reviewed: Yes - General General: Alert and oriented X 3, No acute distress - Extremities Extremities: Other (R knee - Mild joint effusion. No bony tenderness along any aspect of the knee. ACL, MCL, PCL, LCL are intact. Has pain on the medial aspect of the knee with meniscus testing. Otherwise normal examination NVI) - Neuro Neuro: Alert and oriented X 3 Results - Vitals Vitals: Vital Signs - 24 hr 02/05/23 12:01 Temperature 36 C L Heart Rate 84 Respiratory 18 Rate Blood Pressure 155/74 H Oxygen O2 Source Room air PD Medical Decision Making - ED course Complexity details: considered differential, d/w patient ED course: 67-year-old female with right knee pain. She has pain with meniscus testing. Likely that she has a meniscus injury in the knee causing a joint effusion. Placed in a articulating knee brace. We will place her on long-acting anti- inflammatories as well. Recommend that she follow-up with orthopedics for further evaluation of her knee. She may benefit from an MRI as well. Patient states she has had recent x-rays of the knee, no indication for repeat imaging at this time. Patient counseled regarding signs and symptoms for which I believe and urgent re-evaluation would be necessary. Patient with good understanding of and agreement to plan and is comfortable going home at this time This document was made in part using voice recognition software. While efforts are made to proofread this document, sound alike and grammatical errors may occur. Departure - Departure Disposition: 01 Home, Self Care Clinical Impression: Knee effusion, right Condition: Good Instructions: ED Meniscal Injury Knee Poss, ED Effusion Knee Follow-Up: Samra Pfeiffer PA-C [Primary Care Provider] - Orthopedic Care [Provider Group] [facility] [Provider Group] Prescriptions: Meloxicam [Mobic] 7.5 mg PO BID PRN #20 tablet PRN Reason: Pain Comments: You have a small knee effusion on exam today. You likely have some damage to the meniscus in your knee. I recommend that you see orthopedics for further care, they may be able to help you with steroid injections in the knee or other injections to help with the cartilage. They may recommend an MRI as well. I would continue to wear the articulating knee brace as this should help to stabilize your knee. Please return if you worsen. Your prescriptions were sent to [facility] in [place]
== END 2023-02-05 13:01 | disposition home or self-care (01) ==
LOC: ED 11:47
DX: M25.461 Effusion, right knee (principal); I10 Essential (primary) hypertension
CPT/HCPCS: 99282; 99283; A9270

== ENCOUNTER 2023-02-22 08:23 | Outpatient (CLI) | payer MEDICARE ==
[2023-02-22 09:33] LABS: BASOPHILS % (AUTO) 0.6 %; EOSINOPHILS # (AUTO) 0.2 10^3/uL (0.0-0.7); EOSINOPHILS % (AUTO) 3.1 %; HCT - HEMATOCRIT 38.9 % (37.0-47.0); HGB - HEMOGLOBIN 12.6 g/dL (12.0-16.0); LYMPHOCYTES % (AUTO) 41.6 %; MEAN CORPUSCULAR HGB CONC 32.4 g/dL (32.0-36.0); MEAN CORPUSCULAR VOLUME 98.7 fL (81.0-99.0); MEAN PLATELET VOLUME 9.4 fL (7.9-10.8); MONOCYTES # (AUTO) 0.6 10^3/uL (0.0-1.0); MONOCYTES % (AUTO) 13.1 %; NEUTROPHILS % (AUTO) 41.4 %; PLT - PLATELET COUNT 167 10^3/uL (130-450); RED BLOOD COUNT 3.94 10^6/uL (4.20-5.40); RED CELL DISTRIBUTION WIDTH 12.9 % (12.0-15.0); WHITE BLOOD COUNT 4.9 x10^3/uL (4.8-10.8)
[2023-02-22 09:51] LABS: ALBUMIN 4.1 g/dL (3.2-5.5); ALBUMIN/GLOBULIN RATIO 1.3 (1.0-2.2); ALKALINE PHOSPHATASE 68 IU/L (42-121); ALT ALANINE AMINOTRANSFERASE 23 IU/L (10-60); AST ASPARTATE AMINOTRANSFERASE 25 IU/L (10-42); BILIRUBIN,TOTAL 0.7 mg/dL (0.2-1.0); BUN - BLOOD UREA NITROGEN 17 mg/dL (6-20); CALCIUM 9.3 mg/dL (8.5-10.3); CARBON DIOXIDE - CO2 29 mmol/L (21-32); CHLORIDE 104 mmol/L (101-111); CHOLESTEROL 201 mg/dL; CREATININE 0.8 mg/dL (0.4-1.0); GFR - MDRD 72 (>89); GLUCOSE 104 mg/dL (70-100); HDL CHOLESTEROL 66 mg/dL; LDL CHOLESTEROL,CALCULATED 113 mg/dL; LDL/HDL RATIO 1.7 (<4.4); POTASSIUM 4.3 mmol/L (3.5-5.0); SODIUM 142 mmol/L (135-145); TOTAL PROTEIN 7.2 g/dL (6.7-8.2); TRIGLYCERIDES 110 mg/dL; VLDL CHOLESTEROL 22 mg/dL
--- NOTE | 2023-02-22 16:15 | MRI Report ---
PROCEDURE: KNEE WO - RT INDICATIONS: TEAR OF MENISCUS OF RIGHT KNEE TECHNIQUE: Noncontrast sagittal PD fast spin echo and T2 fast spin echo with fat saturation, sagittal 3-D gradie nt sequence with fat saturation; coronal T1 spin echo and PD fast spin echo with fat saturation, and axial PD fast spin echo with fat saturation through the knee. COMPARISON: None. FINDINGS: Image quality: Excellent. Menisci: Linear oblique high T2 signal intensity traverses the posterior horn medial meniscus involvi ng the inner, middle, peripheral thirds, the measuring inferior articular surface extension, indicati ng oblique tearing. Linear oblique high T2 signal intensity traverses the inner, middle, peripheral t hirds of the lateral meniscal body and posterior horn, demonstrating inferior articular surface exten keanu, indicating oblique tearing. Cruciate ligaments: The anterior and posterior cruciate ligaments appear intact. Medial structures: The medial collateral ligament appears intact. Visualized portions of the pes ans erinus tendons appear normal. No abnormal bursal fluid. Lateral structures: The lateral collateral ligament, long and short heads of the biceps femoris tend on appear intact. The popliteus tendon appears. Iliotibial band appears normal. Anterior structures: The quadriceps and patellar tendons appear intact. Patellar alignment is ramesh l. No femoral trochlear dysplasia or ventral trochlear prominence. No edema in the infrapatellar fa t pad. Bones and cartilage: No bone marrow contusions or fractures. Mild subchondral degenerative marrow ed juve within the weightbearing aspect of the medial tibial plateau. Mild tach compartment periarticular osteophyte formation. Moderate cartilage loss diffusely overlies the weightbearing aspects of the me dial femoral condyle and medial tibial plateau. Mild articular cartilage loss overlies the lateral pa tellar facet. Joint space: There is a moderate knee joint effusion and a trace Tran's cyst. Normal appearing syn ovial plicae are incidentally noted. IMPRESSION: 1. Tricompartmental osteoarthritis with associated articular cartilage loss. 2. Medial and lateral meniscal tearing. 3. Knee joint effusion and Tran's cyst. Reviewed by: Henrik Watts MD on 02/22/2023 4:14 PM PDT Approved by: Henrik Watts MD on 02/22/2023 4:14 PM PDT Station ID: [id number]
== END 2023-02-22 08:24 | disposition home or self-care (01) ==
LOC: DI 08:23
PROVIDERS: ATTEND Pain Medicine Pain Medicine
DX: S83.241A Other tear of medial meniscus, current injury, right knee, initial encounter (principal); S83.281A Other tear of lateral meniscus, current injury, right knee, initial encounter; M17.11 Unilateral primary osteoarthritis, right knee; E78.5 Hyperlipidemia, unspecified; R35.0 Frequency of micturition; D69.6 Thrombocytopenia, unspecified; M25.461 Effusion, right knee; M71.21 Synovial cyst of popliteal space [Baker], right knee
CPT/HCPCS: 36415; 80053; 80061; 83721; 85025

== ENCOUNTER 2023-03-31 14:40 | Outpatient (CLI) | payer MEDICARE | END 2023-03-31 23:59 | disposition critical access hospital (66) | LOC: EMS 14:40 | DX: R53.83 Other fatigue (principal); R51.9 Headache, unspecified; I10 Essential (primary) hypertension; R20.2 Paresthesia of skin | CPT/HCPCS: A0425; A0429 ==

== ENCOUNTER 2023-03-31 15:02 | Emergency (ER) | payer MEDICARE ==
--- NOTE | 2023-03-31 15:17 | ED Physician Documentation ---
PD HPI FOCAL NEURO - Stated complaint Stated Complaint: FATIGUE - Chief complaint Chief Complaint: Neuro - History obtained from History obtained from: Patient - Additional information Additional information: 67-year-old woman with history of hypertension on losartan and metoprolol developed a mild headache today with some tingling on the right side. Tingling is gone. Subsequently she took her blood pressure and it was 168/142 and then checked it several more times with readings with continued systolic hypertension but better diastolics. She became worried about the blood pressure and has been fatigued. She denies chest or new back pain or injuries has some level of back pain but it is no different than her usual. 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: Hysterectomy Derm: Skin cancer surgery - Present Medications Home Medications: Ambulatory Orders Medication Instructions Recorded Confirmed Eszopiclone [Lunesta] 2 mg PO HS 08/15/13 03/31/23 Methamphetamine HCl 5 mg PO DAILY 12/16/13 03/31/23 Cholecalciferol (Vitamin D3) 2,000 unit PO DAILY 01/02/19 03/31/23 [Vitamin D] Celecoxib [CeleBREX] 100 mg PO BID 04/17/21 03/31/23 Ubidecarenone [Co Q-10] 30 mg PO DAILY 04/17/21 03/31/23 Biotin 5,000 mcg PO DAILY 05/22/21 03/31/23 DULoxetine [Cymbalta] 30 mg PO DAILY 05/22/21 03/31/23 Melatonin 1 mg PO HS 05/22/21 03/31/23 Metoprolol Succinate [Toprol Xl] 12 mg PO ONCE 02/05/23 03/31/23 Famotidine [Pepcid] 20 mg PO HS 03/31/23 03/31/23 HYDROcod/ACETAM 5/325 [Vicodin 0.5 tab PO HS 03/31/23 03/31/23 5/325] Losartan Potassium 25 mg PO DAILY 03/31/23 03/31/23 - Allergies Allergies/Adverse Reactions: Allergies Allergy/AdvReac Type Severity Reaction Status Date / Time grass pollen Allergy Mild Unknown Verified 03/31/23 15:17 house dust Allergy Mild Unknown Verified 03/31/23 15:17 bacitracin Allergy Rash Verified 03/31/23 15:17 [From Triple Antibiotic] bacitracin zinc * Allergy Rash Verified 03/31/23 15:17 [From Triple Antibiotic] neomycin sulfate * Allergy Rash Verified 03/31/23 15:17 [From Triple Antibiotic] nitrofurantoin Allergy Rash Verified 03/31/23 15:17 [From Macrobid] nitrofurantoin Allergy Rash Verified 03/31/23 15:17 macrocrystalline * [From Macrobid] polymyxin B Allergy Rash Verified 03/31/23 15:17 [From Triple Antibiotic] polymyxin B sulfate * Allergy Rash Verified 03/31/23 15:17 [From Triple Antibiotic] azithromycin [From Zithromax] AdvReac Intermediate Hallucinati Verified 03/31/23 15:17 ons erythromycin base AdvReac Intermediate Nausea Verified 03/31/23 15:17 [Erythromycin Base] Metronidazole HCl * AdvReac Intermediate Cramps Verified 03/31/23 15:17 [From Flagyl] lidocaine AdvReac Rash Verified 03/31/23 15:17 - Social History Does the pt smoke?: No Smoking Status: Never smoker Does the pt drink ETOH?: Yes Does the pt have substance abuse?: No - Immunizations Immunizations are current?: Yes - POLST Patient has POLST: No PD ED PE NORMAL - Vitals Vital signs reviewed: Yes - General General: Alert and oriented X 3, No acute distress - HEENT HEENT: PERRL, EOMI - Neck Neck: Supple, no meningeal sign, No bony TTP - Cardiac Cardiac: RRR, No murmur - Respiratory Respiratory: No respiratory distress - Abdomen Abdomen: Non tender - Neuro Neuro: Alert and oriented X 3, traffic technician 2-12 intact, No motor deficit, No sensory deficit, Normal speech Eye Opening: Spontaneous Motor: Obeys Commands Verbal: Oriented GCS Score: 15 NIHSS - Time Time: 15:10 - Level of Consciousness Level of consciousness: (0) Alert, Keenly responsive LOC Questions: (0) Answers both Q's correct LOC Commands: (0) Performs both correctly - Gaze Best Gaze: (0) Normal - Visual Visual: (0) No loss - Facial Palsy Facial Palsy: (0) Normal, symmetrical movement - Motor Arms (both separate) Motor Arm (right): (0) No drift Motor Arm (left): (0) No drift - Motor Legs (both separate) Motor Leg (right): (0) No drift Motor Leg (left): (0) No drift - Limb Ataxia Limb Ataxia: (0) Absent - Sensory Sensory: (0) Normal - Best Language Best Language: (0) No aphasia - Dysarthria Dysarthria: (0) Normal - Extinction and Inattention (formally neg Extinction and inattention: (0) No abnormality - Total Score/Results Total Score/Result: 0 Results - Vitals Vitals: Vital Signs - 24 hr 03/31/23 03/31/23 03/31/23 15:08 15:30 17:06 Temperature 37.1 C Heart Rate 71 64 64 Respiratory 11 L 12 12 Rate Blood Pressure 171/82 H 162/88 H 144/77 H O2 Saturation 100 100 100 Oxygen O2 Source Room air - EKG (time done) 1520 EKG releavant findings:: EKG personally interpreted by author of this note. Relevant findings are: Rate: Rate (enter#) (68) Rhythm: NSR [place]: Normal Intervals: Normal SD QRS: Normal Ischemia: Normal ST segments - Labs Labs: Laboratory Tests 03/31/23 03/31/23 15:34 15:34 WBC 5.2 RBC 4.09 L Hgb 13.3 Hct 39.5 MCV 96.6 MCH 32.5 H MCHC 33.7 RDW 12.8 Plt Count 184 MPV 9.4 Sodium 137 Potassium 4.3 Chloride 103 Carbon Dioxide 28 Anion Gap 6.0 BUN 21 H Creatinine 0.8 Estimated GFR (MDRD) 72 L Glucose 102 H Calcium 9.4 PD Medical Decision Making - ED course ED course: EKG was normal. BMP notable for elevation in BUN, and this was not present on prior metabolic panel so she may have some element of dehydration. Treated with 1 L of normal saline here. Advised monitoring of blood pressures and follow-up with her physician for consideration for dose changes, but would not be appropriate to adjust doses at this point. Departure - Departure Disposition: 01 Home, Self Care Clinical Impression: Elevated blood pressure reading, Elevated BUN Condition: Good Record reviewed to determine appropriate education?: Yes Instructions: ED HTN Established Comments: Continue current medications. Follow-up with MANOLO Pfeiffer in about a week for recheck. Return for new or worsening symptoms. Drink plenty fluids. Discharge Date/Time: 03/31/23 17:28
[2023-03-31 15:48] LABS: CALCIUM 9.4 mg/dL (8.5-10.3); CREATININE 0.8 mg/dL (0.4-1.0); POTASSIUM 4.3 mmol/L (3.5-5.0)
[2023-03-31] MEDS ORDERED: SODIUM CHLORIDE 0.9% 1,000 ML IV STA (16:08)
[2023-03-31 16:15] LABS: HCT - HEMATOCRIT 39.5 % (37.0-47.0); HGB - HEMOGLOBIN 13.3 g/dL (12.0-16.0); MEAN CORPUSCULAR HEMOGLOBIN 32.5 pg (27.0-31.0); MEAN CORPUSCULAR HGB CONC 33.7 g/dL (32.0-36.0); MEAN CORPUSCULAR VOLUME 96.6 fL (81.0-99.0); MEAN PLATELET VOLUME 9.4 fL (7.9-10.8); RED BLOOD COUNT 4.09 10^6/uL (4.20-5.40); RED CELL DISTRIBUTION WIDTH 12.8 % (12.0-15.0); WHITE BLOOD COUNT 5.2 x10^3/uL (4.8-10.8)
[2023-03-31 17:08] VITALS: BP 144/77
== END 2023-03-31 17:28 | disposition home or self-care (01) ==
LOC: ED 15:02
DX: I10 Essential (primary) hypertension (principal); R79.9 Abnormal finding of blood chemistry, unspecified
CPT/HCPCS: 36415; 80048; 85027; 93005; 96360; 99283

== ENCOUNTER 2023-05-23 14:52 | Outpatient (CLI) | payer MEDICARE ==
[2023-05-23 18:04] LABS: BASOPHILS % (AUTO) 0.4 %; EOSINOPHILS # (AUTO) 0.1 10^3/uL (0.0-0.7); EOSINOPHILS % (AUTO) 1.4 %; HCT - HEMATOCRIT 40.1 % (37.0-47.0); HGB - HEMOGLOBIN 13.2 g/dL (12.0-16.0); LYMPHOCYTES # (AUTO) 1.4 10^3/uL (1.5-3.5); LYMPHOCYTES % (AUTO) 28.7 %; MEAN CORPUSCULAR HEMOGLOBIN 32.3 pg (27.0-31.0); MEAN CORPUSCULAR HGB CONC 32.9 g/dL (32.0-36.0); MONOCYTES # (AUTO) 0.5 10^3/uL (0.0-1.0); MONOCYTES % (AUTO) 9.8 %; NEUTROPHILS # (AUTO) 2.9 10^3/uL (1.5-6.6); NEUTROPHILS % (AUTO) 59.5 %; PLT - PLATELET COUNT 183 10^3/uL (130-450); RED BLOOD COUNT 4.09 10^6/uL (4.20-5.40); RED CELL DISTRIBUTION WIDTH 13.1 % (12.0-15.0); WHITE BLOOD COUNT 4.9 x10^3/uL (4.8-10.8)
[2023-05-23 18:59] LABS: ALBUMIN/GLOBULIN RATIO 1.5 (1.0-2.2); BILIRUBIN,TOTAL 0.5 mg/dL (0.2-1.0); CALCIUM 9.8 mg/dL (8.5-10.3); CREATININE 0.8 mg/dL (0.6-1.3); POTASSIUM 4.3 mmol/L (3.5-4.5); TOTAL PROTEIN 6.6 g/dL (6.4-8.9)
[2023-05-23 19:17] LABS: INR 0.9 (0.8-1.2); PT - PROTHROMBIN TIME 9.9 secs (9.9-12.6)
[2023-05-23 21:34] LABS: ESTIMATED AVERAGE GLUCOSE 117 mg/dL (70-100); HEMOGLOBIN A1c% 5.7 % (4.27-6.07)
== END 2023-05-23 14:53 | disposition home or self-care (01) ==
LOC: LAB.N 14:52
PROVIDERS: ATTEND Physician Assistant Medical
DX: R73.9 Hyperglycemia, unspecified (principal); D69.6 Thrombocytopenia, unspecified
CPT/HCPCS: 36415; 80053; 83036; 85025; 85610

== ENCOUNTER 2023-07-05 08:38 | Outpatient (CLI) | payer MEDICARE, MEDICAID ==
[2023-07-05 13:12] LABS: ALBUMIN 4.1 g/dL (3.2-5.5); ALBUMIN/GLOBULIN RATIO 1.6 (1.0-2.2); BILIRUBIN,TOTAL 0.4 mg/dL (0.2-1.0); CALCIUM 9.7 mg/dL (8.5-10.3); CREATININE 0.9 mg/dL (0.6-1.3); TOTAL PROTEIN 6.6 g/dL (6.4-8.9)
== END 2023-07-05 08:39 | disposition home or self-care (01) ==
LOC: LAB.N 08:38
PROVIDERS: ATTEND Physician Assistant Medical
DX: I10 Essential (primary) hypertension (principal)
CPT/HCPCS: 36415; 80053

== ENCOUNTER 2023-11-07 14:22 | Outpatient (CLI) | payer MEDICARE, MEDICAID ==
[2023-11-07 18:15] LABS: BASOPHILS % (AUTO) 0.8 %; EOSINOPHILS # (AUTO) 0.1 10^3/uL (0.0-0.7); EOSINOPHILS % (AUTO) 2.2 %; HCT - HEMATOCRIT 40.3 % (37.0-47.0); LYMPHOCYTES # (AUTO) 1.4 10^3/uL (1.5-3.5); LYMPHOCYTES % (AUTO) 37.1 %; MEAN CORPUSCULAR HEMOGLOBIN 32.3 pg (27.0-31.0); MEAN CORPUSCULAR HGB CONC 32.3 g/dL (32.0-36.0); MEAN PLATELET VOLUME 9.3 fL (7.9-10.8); MONOCYTES # (AUTO) 0.4 10^3/uL (0.0-1.0); MONOCYTES % (AUTO) 11.1 %; NEUTROPHILS # (AUTO) 1.8 10^3/uL (1.5-6.6); NEUTROPHILS % (AUTO) 48.5 %; PLT - PLATELET COUNT 199 10^3/uL (130-450); RED BLOOD COUNT 4.03 10^6/uL (4.20-5.40); RED CELL DISTRIBUTION WIDTH 13.2 % (12.0-15.0); WHITE BLOOD COUNT 3.7 x10^3/uL (4.8-10.8)
[2023-11-07 18:40] LABS: ALBUMIN 4.2 g/dL (3.2-5.5); ALBUMIN/GLOBULIN RATIO 1.4 (1.0-2.2); BILIRUBIN,TOTAL 0.4 mg/dL (0.2-1.0); CALCIUM 9.5 mg/dL (8.5-10.3); CREATININE 0.8 mg/dL (0.6-1.3); POTASSIUM 4.2 mmol/L (3.5-4.5); TOTAL PROTEIN 7.1 g/dL (6.4-8.9)
[2023-11-07 21:12] LABS: ESTIMATED AVERAGE GLUCOSE 105 mg/dL (70-100); HEMOGLOBIN A1c% 5.3 % (4.27-6.07)
== END 2023-11-07 14:23 | disposition home or self-care (01) ==
LOC: LAB.N 14:22
PROVIDERS: ATTEND Physician Assistant Medical
DX: R73.9 Hyperglycemia, unspecified (principal); D69.6 Thrombocytopenia, unspecified
CPT/HCPCS: 36415; 80053; 83036; 85025

== ENCOUNTER 2023-12-23 08:00 | Outpatient (CLI) | payer MEDICARE, MEDICAID | END 2023-12-23 08:01 | disposition home or self-care (01) | LOC: LAB.N 08:00 | PROVIDERS: ATTEND Family Medicine | DX: J06.9 Acute upper respiratory infection, unspecified (principal) ==

== ENCOUNTER 2024-02-10 18:18 | Outpatient (CLI) | payer MEDICARE, MEDICAID ==
--- NOTE | 2024-02-11 21:38 | XRAY Report ---
PROCEDURE: Foot 1-2V LT (Weight Bearing) INDICATIONS: PLANTAR FASCIITIS, LEFT TECHNIQUE: 2 weight-bearing views acquired of the left foot. COMPARISON: None FINDINGS: Bones: There is normal bony alignment with weight bearing. The calcaneal pitch is 22 degrees. No fra ctures or dislocations. No suspicious bony lesions. Soft tissues: No tibiotalar joint effusion. No suspicious soft tissue calcifications. IMPRESSION: No radiographic abnormalities. Normal calcaneal pitch. No calcaneal spurring. Reviewed by: Ricarda Chavez MD on 02/11/2024 9:37 PM PDT Approved by: Ricarda Chavez MD on 02/11/2024 9:37 PM PDT Station ID: [id number]
== END 2024-02-10 18:19 | disposition home or self-care (01) ==
LOC: DI 18:18
PROVIDERS: ATTEND Physician Assistant Medical
DX: M72.2 Plantar fascial fibromatosis (principal)